=== PATIENT | female | born 1950 | race Caucasian/White ===

== ENCOUNTER 2016-12-12 13:50 | Emergency (ER) | payer MEDICARE, MEDICAID ==
[~2016-12-12] VITALS: Ht 160 cm; Wt 88.9 kg
[~2016-12-12 13:50] MED LIST: ACETAMINOPHEN &1 TA1 PO; ANTIVERT12.5 MG PO; ATENOLOL25 M1 PO; CIPRO 250MG TA250 MG PO; CIPRO 500MG TA500 MG PO; CODEINE/GUAIFE120 M1 PO; CYMBALTA30 MG PO; DANAZOL PO; DIAZEPAM5 M1 PO; DIFLUCAN150 MG PO; EPINASTINE HCL5 ML OP; ERYTHROMYCIN 2250 M3 PO; HYDROCODONE1 TABLET PO; MEDROL 4MG. DOSE4 MG PO; MORPHINE SULFAT15 M3 PO; NEURONTIN 300M300 MG PO; OMEPRAZOLE40 MG PO; PHENERGAN 25MG.25 M1 PO; PREDNISONE 20MG20 MG PO; PREMARIN0.3 MG PO; PRILOSEC20 M1 PO; PROTONIX 40MG T40 MG PO; Prilosec20 MG PO; TAMIFLU75 MG PO; TESSALON PERLE100 MG PO; TRICOR 145 MG145 MG PO; TRICOR48 MG PO; VICODIN 5/500 T1 TAB PO; VITAMIN D1000 IU PO; ZITHROMAX Z PA250 MG PO
--- NOTE | 2016-12-12 14:16 | Urgent Treatment Center Report ---
History of Present Issue Date/Time Seen by Provider 12/12/16 2545 Visit Reason Pt arrived:Walked Presenting Problem:DIARRHEA BEGAN TUESDAY, ABD CRAMPS Location if Accident: Onset of symptoms date/time:/ or onset unknown for:MEDICAL HX UNKNOWN Have you (or family members/close friends) recently traveled outside the [place]? If Yes, where/when: Have you had exposure to infectious disease within the past month? TB? Other? Specify: c/o N/V/D with cramping. Started mid day , 72 hours ago, after eating [employer]. No one else that ate ill. [place] feverish intially. Vomiting has stopped as of yesterday morning. Still intermittently nauseated. Diarrhea has slowed down to only twice today. Watery. yellow. Worse after coffee. Decreased appetite. No known sick contacts. Denies abdominal pain other than cramping associated w/ diarrhea. Promethazine has helped but doesn't have any more. No improvement typically with zofran. Drove to clinic today. Source patient Exam Limitations no limitations ALLERGIES Coded Allergies: Rho(D) immune globulin (From [employer]) (Mild, NA-NAUSEA/VOMITING 05/21/15) Sulfa (Sulfonamide Antibiotics) (Mild, NA-NAUSEA 05/21/15) maltose (From [employer]) (Mild, NA-NAUSEA/VOMITING 05/21/15) Home Medications Active Scripts CIPROFLOXACIN HCL (Cipro 250MG TAB) 250 MG PO BID #14 TAB Prov: 06/22/16 Prednisone (Prednisone 20MG) 20 MG PO BID #10 TAB Prov: 06/26/16 Azithromycin (Zithromycin (Z-DIAMOND) 250MG Tab) 250 MG PO DAILY #6 TAB Prov: 06/26/16 BENZONATATE (Benzonatate) 100 MG PO TID #15 CAP Prov: 06/26/16 Reported Medications Danazol 50 MG PO BID Gabapentin (Neurontin 300MG) 300 MG PO TID DULOXETINE HCL (Cymbalta 30MG) 30 MG PO DAILY Atenolol 25 MG PO BID EPINASTINE HCL (Epinastine HCl) 5 ML OP BID #5 CHOLECALCIFEROL (VITAMIN D3) (Vitamin D3) 2,000 IUNITS PO DAILY History Medical History General CAD? No Angina: Yes [place]: No Hypertension? Yes Hyperlipidemia? Yes CHF? No DVT? No PE? No COPD? No Asthma? No Anemia? Yes GERD? Yes Gastric ulcers? No GI Bleed? No Hernia? Yes Thyroid Problems? No Hypothyroidism? No CVA? Yes Seizures? No Diabetes? No UTI? Yes Stones? Yes GB Disease: Yes Nephritic Syndrome? No Asplenia? No Hepatitis? No Sickle Cell Disease? No Arthritis? Yes Migraines? No Cataracts? No Glaucoma? No MRSA? No HIV? No TB? No Anxiety? No Depression? No Cancer? Yes Site: SKIN -FACE More? Yes Additional hx: LOW PLATELET COUNT Immunization HX DT/Tetanus 5-10 YRS Flu REFUSES Pneumonia Received In Past Surgical Hx Previous Surgery?Y SPLEENECTOMY HYSTERECTOMY CHOLECYSTECTOMY SKIN CANCER Family History Family HX Diabetes Yes CAD Yes Hypertension Yes Hyperlipidemia Yes Cancer No TB No Social History Alcohol Alcohol: No Review of Systems All Other Systems Reviewed and Negative Constitutional see HPI, malaise (improving) Eyes denies drainage ENT denies: ear pain, nose discharge, nose congestion, throat pain. Respiratory denies orthopnea, denies shortness of breath Cardiovascular denies chest pain, denies palpitations Gastrointestinal see HPI Genitourinary denies: dysuria, frequency. Skin denies lesions, denies lumps, denies rash Psychiatric/Neurological denies headache Physical Exam Vital Signs Vital Signs Date Time Temp Pulse Resp B/P Pulse O2 O2 Flow FiO2 Ox Delivery Rate 12/12 1427 98.6 70 18 128/71 96 12/12 1356 98.6 70 18 128/71 96 General Appearance normal appearance, no apparent distress Eye Exam - bilateral eye normal exam Ear, Nose, Throat normal ENT inspection Respiratory Status No: respiratory distress, productive cough, non productive cough. Lung Sounds anterior: lungs clear. posterior: lungs clear. bilateral: lungs clear. Cardiovascular regular rate/rhythm, no peripheral edema, no murmur Gastrointestinal normal bowel sounds, non tender, soft, no organomegaly, no pulsatile mass, no guarding, no rebound Neurologic alert, oriented x 3 Mental status normal mood/affect Skin normal color, warm/dry Lymphatic no adenopathy Medical Decision Making LABS/Meds/Orders Pt receiving controlled substance in ED? No Results/Orders Current Medication Orders Sig/Kirill Start time Last Medication Dose Route Stop Time Status Admin Ondansetron HCl 4 MG ONCE ONE 12/12 1445 DC 12/12 IM 12/12 1446 1447 Ondansetron HCl 0 .STK-MED ONE 12/12 1438 DC .ROUTE Departure Departure Time of Disposition 1501 Disposition DC Home or Self Care(routine) Clinical Impression Primary Impression: Viral gastroenteritis Condition STABLE Referrals Venkat Doherty MD (Family) IMMEDIATELY for new or worsening symptoms OR no noticeable improvement over the next 24-48 hours. Patient Instructions DI for Viral Gastroenteritis -- Adult Additional Instructions * Monitor Temp. FU if fever develops * Follow up immediately for new or worsening symptoms OR no noticeable improvement over the next 24-48 hours. * Increase fluids. Water, gatorade, powerade, juice OR pedialyte with limited formula/dairy in children. * No food is ok as long as you or your child is drinking. Once ready to eat, start bland. bananas, rice, applesauce, toast. Avoid coffee and dairy. Can make symptoms worse. * Contagious until no diarrhea, vomiting, fever x 24 hours without medication * Avoid anti-diarrheals unless told otherwise. Best to let the virus run its course. it already seems to be improving. * promethazine every 8 hours as needed for nausea. Will cause drowsiness. No driving or operating machinary after taking. Discharge Counseling Counseled pt/family regarding diagnosis, medications/RX, home care, follow up needs Prescriptions Current Visit Scripts PROMETHAZINE HCL (Promethazine 25mg Tab) 25 MG PO Q8HP PRN N/V #6 TAB will cause drowsiness at 1503
--- NOTE | 2016-12-12 14:16 | Urgent Treatment Center Report ---
History of Present Issue Date/Time Seen by Provider 12/12/16 2105 Visit Reason Pt arrived:Walked Presenting Problem:DIARRHEA BEGAN TUESDAY, ABD CRAMPS Location if Accident: Onset of symptoms date/time:/ or onset unknown for:MEDICAL HX UNKNOWN Have you (or family members/close friends) recently traveled outside the [place]? If Yes, where/when: Have you had exposure to infectious disease within the past month? TB? Other? Specify: c/o N/V/D with cramping. Started mid day , 72 hours ago, after eating [employer]. No one else that ate ill. [place] feverish intially. Vomiting has stopped as of yesterday morning. Still intermittently nauseated. Diarrhea has slowed down to only twice today. Watery. yellow. Worse after coffee. Decreased appetite. No known sick contacts. Denies abdominal pain other than cramping associated w/ diarrhea. Promethazine has helped but doesn't have any more. No improvement typically with zofran. Drove to clinic today. Source patient Exam Limitations no limitations ALLERGIES Coded Allergies: Rho(D) immune globulin (From [employer]) (Mild, NA-NAUSEA/VOMITING 05/21/15) Sulfa (Sulfonamide Antibiotics) (Mild, NA-NAUSEA 05/21/15) maltose (From [employer]) (Mild, NA-NAUSEA/VOMITING 05/21/15) Home Medications Active Scripts CIPROFLOXACIN HCL (Cipro 250MG TAB) 250 MG PO BID #14 TAB Prov: 06/22/16 Prednisone (Prednisone 20MG) 20 MG PO BID #10 TAB Prov: 06/26/16 Azithromycin (Zithromycin (Z-DIAMOND) 250MG Tab) 250 MG PO DAILY #6 TAB Prov: 06/26/16 BENZONATATE (Benzonatate) 100 MG PO TID #15 CAP Prov: 06/26/16 Reported Medications Danazol 50 MG PO BID Gabapentin (Neurontin 300MG) 300 MG PO TID DULOXETINE HCL (Cymbalta 30MG) 30 MG PO DAILY Atenolol 25 MG PO BID EPINASTINE HCL (Epinastine HCl) 5 ML OP BID #5 CHOLECALCIFEROL (VITAMIN D3) (Vitamin D3) 2,000 IUNITS PO DAILY History Medical History General CAD? No Angina: Yes [place]: No Hypertension? Yes Hyperlipidemia? Yes CHF? No DVT? No PE? No COPD? No Asthma? No Anemia? Yes GERD? Yes Gastric ulcers? No GI Bleed? No Hernia? Yes Thyroid Problems? No Hypothyroidism? No CVA? Yes Seizures? No Diabetes? No UTI? Yes Stones? Yes GB Disease: Yes Nephritic Syndrome? No Asplenia? No Hepatitis? No Sickle Cell Disease? No Arthritis? Yes Migraines? No Cataracts? No Glaucoma? No MRSA? No HIV? No TB? No Anxiety? No Depression? No Cancer? Yes Site: SKIN -FACE More? Yes Additional hx: LOW PLATELET COUNT Immunization HX DT/Tetanus 5-10 YRS Flu REFUSES Pneumonia Received In Past Surgical Hx Previous Surgery?Y SPLEENECTOMY HYSTERECTOMY CHOLECYSTECTOMY SKIN CANCER Family History Family HX Diabetes Yes CAD Yes Hypertension Yes Hyperlipidemia Yes Cancer No TB No Social History Alcohol Alcohol: No Review of Systems All Other Systems Reviewed and Negative Constitutional see HPI, malaise (improving) Eyes denies drainage ENT denies: ear pain, nose discharge, nose congestion, throat pain. Respiratory denies orthopnea, denies shortness of breath Cardiovascular denies chest pain, denies palpitations Gastrointestinal see HPI Genitourinary denies: dysuria, frequency. Skin denies lesions, denies lumps, denies rash Psychiatric/Neurological denies headache Physical Exam Vital Signs Vital Signs Date Time Temp Pulse Resp B/P Pulse O2 O2 Flow FiO2 Ox Delivery Rate 12/12 1427 98.6 70 18 128/71 96 12/12 1356 98.6 70 18 128/71 96 General Appearance normal appearance, no apparent distress Eye Exam - bilateral eye normal exam Ear, Nose, Throat normal ENT inspection Respiratory Status No: respiratory distress, productive cough, non productive cough. Lung Sounds anterior: lungs clear. posterior: lungs clear. bilateral: lungs clear. Cardiovascular regular rate/rhythm, no peripheral edema, no murmur Gastrointestinal normal bowel sounds, non tender, soft, no organomegaly, no pulsatile mass, no guarding, no rebound Neurologic alert, oriented x 3 Mental status normal mood/affect Skin normal color, warm/dry Lymphatic no adenopathy Medical Decision Making LABS/Meds/Orders Pt receiving controlled substance in ED? No Results/Orders Current Medication Orders Sig/Kirill Start time Last Medication Dose Route Stop Time Status Admin Ondansetron HCl 4 MG ONCE ONE 12/12 1445 DC 12/12 IM 12/12 1446 1447 Ondansetron HCl 0 .STK-MED ONE 12/12 1438 DC .ROUTE Departure Departure Time of Disposition 1501 Disposition DC Home or Self Care(routine) Clinical Impression Primary Impression: Viral gastroenteritis Condition STABLE Referrals Venkat Doherty MD (Family) IMMEDIATELY for new or worsening symptoms OR no noticeable improvement over the next 24-48 hours. Patient Instructions DI for Viral Gastroenteritis -- Adult Additional Instructions * Monitor Temp. FU if fever develops * Follow up immediately for new or worsening symptoms OR no noticeable improvement over the next 24-48 hours. * Increase fluids. Water, gatorade, powerade, juice OR pedialyte with limited formula/dairy in children. * No food is ok as long as you or your child is drinking. Once ready to eat, start bland. bananas, rice, applesauce, toast. Avoid coffee and dairy. Can make symptoms worse. * Contagious until no diarrhea, vomiting, fever x 24 hours without medication * Avoid anti-diarrheals unless told otherwise. Best to let the virus run its course. it already seems to be improving. * promethazine every 8 hours as needed for nausea. Will cause drowsiness. No driving or operating machinary after taking. Discharge Counseling Counseled pt/family regarding diagnosis, medications/RX, home care, follow up needs Prescriptions Current Visit Scripts PROMETHAZINE HCL (Promethazine 25mg Tab) 25 MG PO Q8HP PRN N/V #6 TAB will cause drowsiness at 1505
[2016-12-12] MEDS ORDERED: PROMETHAZINE HC25 M1 PO (15:03)
[2016-12-12 15:16] VITALS: BP 128/71
== END 2016-12-12 15:16 | disposition home or self-care (01) ==
LOC: UTC 13:50 → ER 13:50 → UTC 14:11
DX: A08.4 Viral intestinal infection, unspecified (principal); Z88.2 Allergy status to sulfonamides; Z88.8 Allergy status to other drugs, medicaments and biological substances; I10 Essential (primary) hypertension; K21.9 Gastro-esophageal reflux disease without esophagitis
CPT/HCPCS: J2405

== ENCOUNTER 2017-02-24 12:46 | Emergency (ER) | payer MEDICARE, MEDICAID ==
[~2017-02-24] VITALS: Ht 160 cm; Wt 95.3 kg
[~2017-02-24 12:46] MED LIST changes: +PROMETHAZINE HC25 M1 PO
[2017-02-24 13:11] LABS: URINE BILIRUBIN - DIPSTICK NEGATIVE (NEG)
[2017-02-24 13:12] LABS: URINE BLOOD TRACE-LYSED (NEG)
--- NOTE | 2017-02-24 13:49 | Urgent Treatment Center Report ---
See Addendum History of Present Issue Date/Time Seen by Provider 02/24/17 4635 Visit Reason Pt arrived:Walked Presenting Problem:BURNING WITH URINATION, BODY ACHES, DIARRHEA Location if Accident: Onset of symptoms date/time:/ or onset unknown for:MEDICAL HX UNKNOWN Have you (or family members/close friends) recently traveled outside the [place]? N If Yes, where/when: Have you had exposure to infectious disease within the past month? TB? Other? Specify: Patient state that she has been having burning with urination on and off since she had her bladder surgery several years ago but she was worried that she may have a UTI States that she was seen yesterday by her Electro Winning Operator that told her to see her family doctor and get tested for Hpylori because she has been having eppisodes of diarrhea on and off for several months ALLERGIES Coded Allergies: Rho(D) immune globulin (From [employer]) (Mild, NA-NAUSEA/VOMITING 05/21/15) Sulfa (Sulfonamide Antibiotics) (Mild, NA-NAUSEA 05/21/15) maltose (From [employer]) (Mild, NA-NAUSEA/VOMITING 05/21/15) Home Medications Active Scripts CIPROFLOXACIN HCL (Cipro 250MG TAB) 250 MG PO BID #14 TAB Prov: 06/22/16 Prednisone (Prednisone 20MG) 20 MG PO BID #10 TAB Prov: 06/26/16 Azithromycin (Zithromycin (Z-DIAMOND) 250MG Tab) 250 MG PO DAILY #6 TAB Prov: 06/26/16 BENZONATATE (Benzonatate) 100 MG PO TID #15 CAP Prov: 06/26/16 PROMETHAZINE HCL (Promethazine 25mg Tab) 25 MG PO Q8HP PRN N/V #6 TAB Prov: 12/12/16 Reported Medications Danazol 50 MG PO BID Gabapentin (Neurontin 300MG) 300 MG PO TID DULOXETINE HCL (Cymbalta 30MG) 30 MG PO DAILY Atenolol 25 MG PO BID EPINASTINE HCL (Epinastine HCl) 5 ML OP BID #5 CHOLECALCIFEROL (VITAMIN D3) (Vitamin D3) 2,000 IUNITS PO DAILY History Medical History General CAD? No Angina: Yes [place]: No Hypertension? Yes Hyperlipidemia? Yes CHF? No DVT? No PE? No COPD? No Asthma? No Anemia? Yes GERD? Yes Gastric ulcers? No GI Bleed? No Hernia? Yes Thyroid Problems? No Hypothyroidism? No CVA? Yes Seizures? No Diabetes? No UTI? Yes Stones? Yes GB Disease: Yes Nephritic Syndrome? No Asplenia? No Hepatitis? No Sickle Cell Disease? No Arthritis? Yes Migraines? No Cataracts? No Glaucoma? No MRSA? No HIV? No TB? No Anxiety? No Depression? No Cancer? Yes Site: SKIN -FACE More? Yes Additional hx: LOW PLATELET COUNT Immunization HX DT/Tetanus 5-10 YRS Flu REFUSES Pneumonia Received In Past Surgical Hx Previous Surgery?Y SPLEENECTOMY HYSTERECTOMY CHOLECYSTECTOMY SKIN CANCER Family History Family HX Diabetes Yes CAD Yes Hypertension Yes Hyperlipidemia Yes Cancer No TB No Social History Smoking Hx Smoker: Never Smoker Tobacco: No Alcohol Alcohol: No Review of Systems All Other Systems Reviewed and Negative Gastrointestinal diarrhea Genitourinary dysuria, pain. Physical Exam Vital Signs Vital Signs Date Time Temp Pulse Resp B/P Pulse O2 O2 Flow FiO2 Ox Delivery Rate 02/24 1258 98.0 70 16 126/73 97 General Appearance normal appearance, WD/WN, no apparent distress Ear, Nose, Throat normal ENT inspection Respiratory Status Yes: trachea midline. No: respiratory distress. Lung Sounds bilateral: normal breath sounds, lungs clear. Cardiovascular normal exam, regular rate/rhythm, no peripheral edema Gastrointestinal normal bowel sounds, normal exam, non tender, no guarding, no rebound Neurologic alert, normal exam, oriented x 3 Medical Decision Making LABS/Meds/Orders Pt receiving controlled substance in ED? No Results/Orders Laboratory Tests 02/24/17 1301: Influenza Type A Ag NOT DETECTED, Influenza Type B Ag NOT DETECTED, Urine Color YELLOW, Urine Appearance CLEAR, Urine pH 7.0, Ur Specific [place] 1.010, Urine Protein NEGATIVE, Urine Ketones NEGATIVE, Urine Blood TRACE-LYSED, Urine Nitrate NEGATIVE, Urine Bilirubin NEGATIVE, Urine Urobilinogen 0.2, Ur Leukocyte Esterase NEGATIVE, Urine Glucose NEGATIVE Orders Procedure Date/time Status HELICOBACTER PYLORI AB 02/24 1349 Active UTC URINE DIPSTICK 02/24 1301 Complete UTC FLU A,B 02/24 1301 Complete Departure Departure Time of Disposition 1347 Disposition DC Home or Self Care(routine) Clinical Impression Primary Impression: Diarrhea Qualifiers: Diarrhea type: unspecified type Qualified Code: R19.7 - Diarrhea, unspecified Condition STABLE Referrals Venkat Doherty MD (Family): 3 Days-Call Office Call office for follow up appointment for results of Hpylori testing Patient Instructions Diarrhea, DIET-DIARRHEA NUTRITION [facility] Additional Instructions Follow up with family doctor to get results of Hpylori testing FOllow up with family doctor if symptoms persist Return if needed Drink plenty of fluids to flush kidneys Discharge Counseling Counseled pt/family regarding diagnosis, test results, home care, follow up needs at [phone]
--- NOTE | 2017-02-24 13:49 | Urgent Treatment Center Report ---
See Addendum History of Present Issue Date/Time Seen by Provider 02/24/17 5145 Visit Reason Pt arrived:Walked Presenting Problem:BURNING WITH URINATION, BODY ACHES, DIARRHEA Location if Accident: Onset of symptoms date/time:/ or onset unknown for:MEDICAL HX UNKNOWN Have you (or family members/close friends) recently traveled outside the [place]? N If Yes, where/when: Have you had exposure to infectious disease within the past month? TB? Other? Specify: Patient state that she has been having burning with urination on and off since she had her bladder surgery several years ago but she was worried that she may have a UTI States that she was seen yesterday by her Historic Site Administrator that told her to see her family doctor and get tested for Hpylori because she has been having eppisodes of diarrhea on and off for several months ALLERGIES Coded Allergies: Rho(D) immune globulin (From [employer]) (Mild, NA-NAUSEA/VOMITING 05/21/15) Sulfa (Sulfonamide Antibiotics) (Mild, NA-NAUSEA 05/21/15) maltose (From [employer]) (Mild, NA-NAUSEA/VOMITING 05/21/15) Home Medications Active Scripts CIPROFLOXACIN HCL (Cipro 250MG TAB) 250 MG PO BID #14 TAB Prov: 06/22/16 Prednisone (Prednisone 20MG) 20 MG PO BID #10 TAB Prov: 06/26/16 Azithromycin (Zithromycin (Z-DIAMOND) 250MG Tab) 250 MG PO DAILY #6 TAB Prov: 06/26/16 BENZONATATE (Benzonatate) 100 MG PO TID #15 CAP Prov: 06/26/16 PROMETHAZINE HCL (Promethazine 25mg Tab) 25 MG PO Q8HP PRN N/V #6 TAB Prov: 12/12/16 Reported Medications Danazol 50 MG PO BID Gabapentin (Neurontin 300MG) 300 MG PO TID DULOXETINE HCL (Cymbalta 30MG) 30 MG PO DAILY Atenolol 25 MG PO BID EPINASTINE HCL (Epinastine HCl) 5 ML OP BID #5 CHOLECALCIFEROL (VITAMIN D3) (Vitamin D3) 2,000 IUNITS PO DAILY History Medical History General CAD? No Angina: Yes [place]: No Hypertension? Yes Hyperlipidemia? Yes CHF? No DVT? No PE? No COPD? No Asthma? No Anemia? Yes GERD? Yes Gastric ulcers? No GI Bleed? No Hernia? Yes Thyroid Problems? No Hypothyroidism? No CVA? Yes Seizures? No Diabetes? No UTI? Yes Stones? Yes GB Disease: Yes Nephritic Syndrome? No Asplenia? No Hepatitis? No Sickle Cell Disease? No Arthritis? Yes Migraines? No Cataracts? No Glaucoma? No MRSA? No HIV? No TB? No Anxiety? No Depression? No Cancer? Yes Site: SKIN -FACE More? Yes Additional hx: LOW PLATELET COUNT Immunization HX DT/Tetanus 5-10 YRS Flu REFUSES Pneumonia Received In Past Surgical Hx Previous Surgery?Y SPLEENECTOMY HYSTERECTOMY CHOLECYSTECTOMY SKIN CANCER Family History Family HX Diabetes Yes CAD Yes Hypertension Yes Hyperlipidemia Yes Cancer No TB No Social History Smoking Hx Smoker: Never Smoker Tobacco: No Alcohol Alcohol: No Review of Systems All Other Systems Reviewed and Negative Gastrointestinal diarrhea Genitourinary dysuria, pain. Physical Exam Vital Signs Vital Signs Date Time Temp Pulse Resp B/P Pulse O2 O2 Flow FiO2 Ox Delivery Rate 02/24 1258 98.0 70 16 126/73 97 General Appearance normal appearance, WD/WN, no apparent distress Ear, Nose, Throat normal ENT inspection Respiratory Status Yes: trachea midline. No: respiratory distress. Lung Sounds bilateral: normal breath sounds, lungs clear. Cardiovascular normal exam, regular rate/rhythm, no peripheral edema Gastrointestinal normal bowel sounds, normal exam, non tender, no guarding, no rebound Neurologic alert, normal exam, oriented x 3 Medical Decision Making LABS/Meds/Orders Pt receiving controlled substance in ED? No Results/Orders Laboratory Tests 02/24/17 1301: Influenza Type A Ag NOT DETECTED, Influenza Type B Ag NOT DETECTED, Urine Color YELLOW, Urine Appearance CLEAR, Urine pH 7.0, Ur Specific [place] 1.010, Urine Protein NEGATIVE, Urine Ketones NEGATIVE, Urine Blood TRACE-LYSED, Urine Nitrate NEGATIVE, Urine Bilirubin NEGATIVE, Urine Urobilinogen 0.2, Ur Leukocyte Esterase NEGATIVE, Urine Glucose NEGATIVE Orders Procedure Date/time Status HELICOBACTER PYLORI AB 02/24 1349 Active UTC URINE DIPSTICK 02/24 1301 Complete UTC FLU A,B 02/24 1301 Complete Departure Departure Time of Disposition 1347 Disposition DC Home or Self Care(routine) Clinical Impression Primary Impression: Diarrhea Qualifiers: Diarrhea type: unspecified type Qualified Code: R19.7 - Diarrhea, unspecified Condition STABLE Referrals Venkat Doherty MD (Family): 3 Days-Call Office Call office for follow up appointment for results of Hpylori testing Patient Instructions Diarrhea, DIET-DIARRHEA NUTRITION [facility] Additional Instructions Follow up with family doctor to get results of Hpylori testing FOllow up with family doctor if symptoms persist Return if needed Drink plenty of fluids to flush kidneys Discharge Counseling Counseled pt/family regarding diagnosis, test results, home care, follow up needs at [phone]
[2017-02-24 13:54] VITALS: BP 126/73
--- OUTSIDE RECORDS SUMMARY | 2017-02-24 14:21 | External Medical Summary Rpt | CCD ---
Author Author , KELY Organization KELY Address Unknown Phone [email or web address] Sponsorship Care Team Providers Care Csw Name Role Phone Fifi BURRELL MD PSC, A Unavailable Unavailable Santino BRURELL MD [facility] Unavailable Unavailable [facility], [facility] MARY BURRELL, Unavailable Unavailable [facility] MARY BURRELL M.D.P.S.CPawan MOSS, Unavailable Unavailable RAFFAELE ISA [facility] Unavailable Unavailable [facility] GREGORIO BERNARDO, Unavailable Unavailable GREGORIO BERNARDO [facility], Unavailable Unavailable [facility] TANESHA HILDA, Unavailable Unavailable TANESHA HILDA SARAN ALMENDAREZ, Unavailable Unavailable TANESHACANDELARIA [facility] Unavailable Unavailable [facility], DERMATOLOGY [facility] ANJELICA GASTELUM, Unavailable Unavailable ANJELICA GASTELUM JANE E, Unavailable Unavailable HOMAR JUDD ELLEN J, Unavailable Unavailable LIYA CASTILLO GAINEY Unavailable Unavailable DAINA TRINY FREITAS, Unavailable Unavailable TRINY FREITAS [facility] Unavailable Unavailable HOSPITA, [facility] ODELL MIRIAN, ODELL Unavailable Unavailable MIRIAN [facility] Unavailable Unavailable INC, [facility] Unavailable Unavailable HOSPITAL, [facility] Unavailable Unavailable HOSPITAL P, [facility] P KEAGAN VEDA, KEAGAN VEDA Unavailable Unavailable YUN CRUZ, Unavailable Unavailable YUN CRUZ [facility] Unavailable Unavailable [facility], [facility] Unavailable Unavailable MEDICAL G, [facility] Un[facility] Un[facility], [facility] Un[facility], [facility] Unavailable Unavailable HOLDING, [facility] Unavailable Unavailable [facility] Unavailable Unavailable CENTER, [facility] Unavailable Unavailable SERVICES, [facility] VIOLET TOBIAS, Unavailable Unavailable QUE KAISER JR, JR Unavailable Unavailable F, QUE LAZO JR [facility] Unavailable Unavailable SERV DOOR TO DOOR SALESMAN R, [facility] SERV DOOR TO DOOR SALESMAN R GREGORY JUSTIN, Unavailable Unavailable GREGORY JUSTIN, JOSELITO RACHID Unavailable Unavailable VENKAT DOHERTY, Unavailable Unavailable VENKAT DOHERTY [facility] Unavailable Unavailable [facility], [facility] NWABUNOR ISA, Unavailable Unavailable NW[facility]UNOR IS[facility] Un[facility] JOSE L HAYWARD MD Unavailable Unavailable [facility], JOSE L HAYWARD MD [facility] Unavailable Unavailable LAB, [facility]Y [facility]Y LAB TRI PASTRANA, Unavailable Unavailable TRI PASTRA[facility] Unavailable Unavailable INCORPORAT, [facility] ANDERSONANDREY MENDENHALL, Unavailable Unavailable ANDERSON, ANDREY [facility] Unavailable Unavailable [facility] SCIFRES, SCIFRES Unavailable Unavailable SCIFRES ANG, SCIFRES Unavailable Unavailable [facility], Unavailable Unavailable [facility], Unavailable Unavailable [facility] Venkat Doherty MD, Unavailable Unavailable KAVYA Camejo MD Unavailable Unavailable Fifi BURRELL WRIGHT, Unavailable Unavailable A C Purpose Continuity of Care Document - 03-27-2007 through 2016 Problems Code Diagnosis DOS Provider Status D6949 OTHER 11-26-2016 [facility] THROMBOCYTO HEMATOLOGY PENIA ONCO N393 STRESS 09-28-2016 [facility] [place] [facility] MALE D46Z OTHER 08-25-2016 [facility] MYELODYSPLA [facility] STIC SYNDROMES D696 THROMBOCYTO 08-25-2016 [facility] UNSPECIFIED H94112 HEMIPLEGIA 08-25-2016 [facility] CEREBRAL INFARCT AFF LT NON-DOM N312 FLACCID 08-25-2016 [facility] NEUROPATHIC [facility] BLADDER NEC R32 UNSPECIFIED 08-25-2016 [facility] URINARY [facility] INCONTINENC E R449 UNS SX & 08-25-2016 [facility] GEN SENSATION & PERCEPTIONS D85066 PERSONAL 08-25-2016 [facility] OTHER MALIGNANT NEOPLASM SKIN Z9081 ACQUIRED 08-25-2016 [facility] SPLEEN N3946 MIXED 08-24-2016 [facility] P Z1231 ENCOUNTER 08-24-2016 [facility] P NEOPLASM BREAST D469 MYELODYSPLA 07-12-2016 [facility] SYNDROME UNSPECIFIED D693 IMMUNE 07-12-2016 [facility]IC PURPURA J439 EMPHYSEMA 07-02-2016 [facility] R05 COUGH 07-02-2016 [facility] [place] [facility] R0602 SHORTNESS 07-02-2016 [facility] N390 URINARY 06-29-2016 [facility] SITE NOT SPECIFIED R319 HEMATURIA 06-29-2016 [facility] UNSPECIFIED [facility]AGNOSTICS INCORPORAT R079 CHEST PAIN 06-26-2016 [place] [facility] E70760 PINGUECULIT 04-01-2016 [facility] IS BILATERAL H5213 MYOPIA 04-01-2016 [facility] BILATERAL R90970 REGULAR 04-01-2016 [facility] ASTIGMATISM BILATERAL J40 BRONCHITIS 02-20-2016 A Santino DAWN MD PSC SPECIFIED ACUTE OR CHRONIC R300 DYSURIA 02-20-2016 A Santino BURRELL MD PSC R6889 OTHER 02-20-2016 A Santino BURRELL GENERAL PSC SYMPTOMS AND SIGNS Z833 FAMILY 02-20-2016 A Santino BURRELL HISTORY OF PSC DIABETES MELLITUS J329 CHRONIC 02-10-2016 A Santino BURRELL SINUSITIS PSC UNSPECIFIED Z23 ENCOUNTER 02-10-2016 A Santino BURRELL FOR PSC IMMUNIZATIO N C751 MALIGNANT 12-04-2015 NEW NEOPLASM OF [facility] PSC GLAND U79618 MIGRAINE 12-04-2015 NEW UNS NOT [facility] INTRACT W/O CLINIC PSC STATUS MIGRAINOSUS R413 OTHER 12-04-2015 NEW [facility] PSC R0989 OTH SPEC SX 11-27-2015 NEW & SIGNS [facility] INVLV THE CLINIC PSC CIRC & RESP SYS D649 ANEMIA 08-29-2015 NEW UNSPECIFIED [facility] PSC I10 ESSENTIAL 07-23-[address] [facility] HYPERTENSIO MEDICAL G N I2510 ASHD BUCK[place] 07-23-[address] 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 CONNECTIVE TISSUE UNS R9439 ABNORMAL 07-22-2015 [facility] CARDIOVASCU LR FUNCTION STUDY Z8673 PERSONAL HX 07-22-2015 [facility] CEREB INFARCT NO RESID DEFICIT R0600 DYSPNEA 07-08-2015 [place] UNSPECIFIED [facility] IM[facility]ING ASS E03460 COMBINED 07-01-2015 [facility] FORMS OF ISA AGE-RELATED CATARACT LEFT EYE H269 UNSPECIFIED 05-27-2015 [facility] R110 NAUSEA 04-23-2015 Fifi BURRELL MD PSC R6883 CHILLS 04-23-2015 Fifi JOSHI MD PSC FEVER R63940 OTHER LONG 04-02-2015 [facility] CURRENT DRUG THERAPY Z9049 ACQUIRED 04-02-2015 [facility] SPEC PARTS DIGESTIVE TRACT V94854 ACQUIRED 04-02-2015 [facility] BOTH CERVIX AND UTERUS H2513 AGE-RELATED 03-27-2015 [facility] ANG NUCLEAR CATARACT BILATERAL M797 FIBROMYALGI 01-29-2015 Fifi Calix MD PSC M2010 HALLUX 12-26-2014 [place] VAL[facility]US [facility]ICAL ACQUIRED IMAGING ASS UNSPECIFIED FOOT M2011 HALLUX 12-26-2014 [facility]US [facility] ACQUIRED INC RIGHT FOOT M7731 CALCANEAL 12-26-2014 [place] SPUR RIGHT MEDICAL FOOT IMAGING ASS M7989 OTHER 12-26-2014 [place] SPECIFIED MEDICAL SOFT TISSUE IMAGING ASS DISORDERS 29686 PRIMARY 12-18-2014 [facility] HEMATOLOGY UNSPECIFIED ONCO 85156 IMMUNE 11-05-2014 [facility] THROMBOCYTO [facility] PENIC INC PURPURA 5693 HEMORRHAGE 11-05-2014 [facility] OF RECTUM [facility] AND ANUS INC 79532 OSTEOARTHRO 11-05-2014 [place] SIS UNSPEC MEDICAL WHETHER IMAGING ASS GEN/LOC LOWER LEG 75852 PAIN IN 11-05-2014 [place] JOINT, SITE [facility] HOS[facility] INC UNSPECIFIED 11802 PAIN IN 11-05-2014 [place] JOINT, MEDICAL LOWER LEG IMAGING ASS 7291 UNSPECIFIED 11-05-2014 [facility] MYALGIA [facility] AND INC MYOSITIS 06739 UNSPECIFIED 10-25-2014 [facility] ESOPHAGITIS CENTER 75698 REFLUX 10-25-2014 [facility] 41080 ESOPHAGEAL 10-25-2014 [facility] REFLUX SURGERY CENTER 5379 UNSPECIFIED 10-25-2014 [facility]ORDER [facility] OF STOMACH AND DUODENUM 5533 DIAPHRAGMAT 10-25-2014 [facility] FRANCISCO J W/O SURGERY MENTION CENTER OBSTRUCTION /GANGREN 54535 DIVERTICULO 10-25-2014 [facility] SIS OF SURGERY COLON CENTER 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 10-25-2014 [facility] CONGENITAL SURGERY ANOMALIES CENTER OF INTESTINE V571 OTHER 08-01-2014 [facility] PHYSICAL [facility] THERAPY INC 2859 UNSPECIFIED 07-05-2014 [place] ANEMIA [facility] P 4019 UNSPECIFIED 07-05-2014 [place] ESSENTIAL [facility] P N 515 POSTINFLAMM 07-05-2014 [place] ATORY MEDICAL PULMONARY IMAGING ASS FIBROSIS 7241 PAIN IN 07-05-2014 [place] THORACIC MEDICAL SPINE IMAGING ASS 8471 THORACIC 07-05-2014 [facility] P 4611 ACUTE 06-20-2014 A Santino DURAN MD PSC SINUSITIS 4779 ALLERGIC 06-20-2014 A Santino BURRELL RHINITIS PSC CAUSE UNSPECIFIED 37692 HIDRADENITI 06-20-2014 A Santino Perales MD PSC 96743 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[facility] 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 V5869 LONG-TERM 04-29-2014 [facility] (CURRENT) CENTER OF USE OF [place] OTHER MEDICATIONS 05017 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 [facility] CEREBROVASC ULAR DISEASE 25578 OTHER 01-23-2014 [facility] FATIGUE V1083 PERSONAL 01-23-2014 [facility] OTHER MALIGNANT NEOPLASM SKIN 2111 BENIGN 12-14-2013 [facility] NEOPLASM OF SURGERY STOMACH CENTER 22708 ABDOMINAL 12-14-2013 [facility] PAIN, EPIGASTRIC V1272 PERSONAL 11-09-2013 [facility] HISTORY OF COLONIC POLYPS 57009 UNSPECIFIED 10-30-2013 [place] CEREBRAL [facility] ARTERY INC OCCLUSION W/INFARCT 4359 UNSPECIFIED 08-17-2013 [place] [facility] TRANSIENT SERV CEREBRAL FOUNDATION ISCHEMIA 436 ACUTE BUT 08-17-2013 [place] MEDICAL ILL-DEFINED SERV FOUNDATIO CEREBROVASC ULAR DISEASE V1254 PERSONAL HX 08-17-2013 [place] MEDICAL TIA & CI SERV W/O FOUNDATION RESIDUAL DEFICITS 2724 OTHER AND 08-16-2013 [place] UNSPECIFIED [facility]OS[facility] INC HYPERLIPIDE YING 4371 OTH 08-16-2013 [place] GENERALIZED MEDICAL ISCHEMIC IMAGING ASS CEREBROVASC ULAR DISEASE 00154 OTHER 08-16-2013 [facility] DISEASES OF AMBULANCE LUNG NOT SERV DOOR TO DOOR SALESMAN R ELSEWHERE CLASSIFIED 21885 MUSCLE 08-16-2013 [facility] WEAKNESS AMBULANCE (GENERALIZE SERV DOOR TO DOOR SALESMAN R D) 28333 OTHER 08-16-2013 [facility] RESPIRATORY AMBULANCE SERV [place] [address] UNSPECIFIED 08-03-2013 [facility] [place] [address] CONJUNCTIVA 07-22-2013 [facility] DAINA L HEMORRHAGE 96814 CEREBRAL 05-11-2013 [place] [facility] THROMBOSIS SERV WITH [facility]AT[facility] CEREBRAL INFARCTION 81056 OTHER 05-10-2013 [place] MEDICAL CONDITIONS SERV OF BRAIN [facility] 7949 NONSPECIFIC 05-10-2013 [place] MEDICAL ABNORM SERV RESULTS OT [facility] SPEC FUNCT STUDY 2875 UNSPECIFIED 05-09-2013 [facility] THROMBOCYTO SERVICES PENIA 49503 OTHER 04-18-2013 A Santino SANTOS MD [facility] STATES 4659 ACUTE URIS 04-18-2013 A Santino CALERO [facility] UNSPECIFIED SITE 7881 DYSURIA 04-18-2013 A Santino BURRELL MD P[facility] 3480 CEREBRAL 02-07-2013 [place] CYSTS MEDICAL IMAGING ASS 67792 MEMORY LOSS 02-07-2013 [facility] INC 50995 OTHER 10-19-2012 DERMATOLOGY SPECIFIED ERYTHEMATOU CONSULTANTS S CONDITION PSC OTHER 13225 INFLAMED 10-19-2012 DERMATOLOG[facility] SEBORRHEIC KERATOSIS CONSULTANTS PSC 20543 PAIN IN 08-08-2012 [place] JOINT, MEM HOS[facility] SHOULDER INC REGION 48034 OTHER 05-08-2012 [facility] THROMBOCYTO HEMATOLOGY PENIA ONCO 4293 CARDIOMEGAL 05-05-2012 [facility] MEDICAL IMAGING ASS 4660 ACUTE 05-03-2012 [facility] 4610 ACUTE 04-12-2012 Fifi CHEN MD [facility] SINUSITIS 496 CHRONIC 04-12-[address] HILDA OBSTRUCTION NEC 7862 COUGH 04-12-2012 [facility] 67828 INFLUENZA 03-30-2012 A Santino VILLEGAS MD [facility] INFLUENZA A OTH MANIFEST 61706 WHEEZING 03-30-2012 Fifi BURRELL MD PSC 52685 SHORTNESS 03-26-2012 TANESHA OF BREATH HILDA 486 PNEUMONIA, 03-25-2012 KAVYA OWENS ORGANISM UNSPECIFIED 4871 INFLUENZA 03-25-2012 [facility] WITH OTHER MEM HOS[facility] RESPIRATORY INC MANIFESTATI ONS 65995 TACHYPNEA 03-25-2012 KAVYA OWENS 00529 SUDDEN 03-17-2012 [facility] VISUAL LOSS ISA 3698 UNQUALIFIED 03-17-2012 [facility] VISUAL [facility] LOSS, ONE INC EYE 3699 UNSPECIFIED 03-17-2012 TANESHA VISUAL HILDA LOSS 83968 NAUSEA 12-07-2011 [facility]ITY [facility]OS[facility] 41155 ABDOMINAL 12-07-2011 [place] PAIN, [facility] UNSPECIFIED HOSPITA SITE 99710 ACUTE 12-02-2011 [facility] GASTRITIS NKLIN NANCY WITHOUT MENTION OF HEMORRHAGE 62965 OTHER SPEC 12-02-2011 [place] GASTRITIS COMMUNITY WITHOUT HOSPITA MENTION HEMORRHAGE 7871 HEARTBURN 12-02-2011 [facility] NKLIN NANCY 36644 DYSPHAGIA 11-01-2011 [place] [facility] 30796 DYSPHAGIA 11-01-2011 [facility] ORAL PHASE [facility] INC V711 OBSERVATION 11-01-2011 [place] FOR [facility] SUSPECTED INC MALIGNANT NEOPLASM 5990 URINARY 07-29-2011 JOSELITO RACHID TRACT INFECTION SITE NOT SPECIFIED 7804 DIZZINESS 02-27-2011 MCANITRAMIE AND MICHELINE GIDDINESS 7840 HEADACHE 02-27-2011 [place] [facility] 7919 OTHER 02-27-2011 [facility] MARTINEZ NONSPECIFIC MICHELINE FINDING EXAMINATION OF URINE 77543 OBSTRUCTIVE 12-08-2010 JOSE L HAYWARD SLEEP APNEA CONSULTING SRV 58300 OTHER 12-08-2010 JOSE L HAYWARD SPECIFIED CARDIAC CONSULTING DYSRHYTHMIA SRV S 03426 PRECORDIAL 12-08-2010 JOSE L MAINOR PAIN CONSULTING SRV 7821 RASH AND 10-20-2010 [facility] OTHER CENTER OF NONSPECIFIC [place] SKIN ERUPTION V7612 OTHER 08-18-2010 [facility] SCREENING [facility]OS[facility] MAMMOGRAM INC 53080 UNSPECIFIED 08-16-2010 [facility] SITE OF EMERGENCY ANKLE SERVICES SPRAIN AND STRAIN 12476 SPRAIN AND 08-16-2010 [facility] STRAIN OF EMERGENCY UNSPECIFIED SERVICES SITE OF FOOT 9597 INJURY 08-16-2010 [place] OTHER&UNSPE MEDICAL CIFIED KNEE IMAGING ASS LEG ANKLE&FOOT E8889 UNSPECIFIED 08-16-2010 [facility] 41963 PAIN IN 07-30-2010 [place] JOINT MEDICAL PELVIC IMAGING ASS REGION AND THIGH 66971 OTHER 07-27-2010 YIMI ORELLANA M[facility] 2706 LUMBOSACRAL 07-27-2010 MARY BURRELL SPONDYLMARIO [facility] WITHOUT MYELOPATHY 7242 LUMBAGO 07-27-2010 MARY BURRELL M.D.P.S.C. E9479 UNSPEC 03-26-2010 [facility] RX/MEDICINA [place] [address] NUCLEAR 02-10-2010 [facility] SCLEROSIS 80694 OTHER 02-10-2010 [facility] VITREOUS OPACITIES 43688 UNSPECIFIED 01-28-2010 [facility] NANCY CONSTIPATIO N 4011 ESSENTIAL 11-01-2009 [facility] HYPERTENSIO [place] INC N, BENIGN 2720 PURE 08-26-2009 [place] [facility] 45802 ATROPHIC 08-26-2009 [place] GASTRITIS [facility] WITHOUT HOSPITAL MENTION OF HEMORRHAGE 78394 OTHER 08-26-2009 [place] SYMPTOMS [facility] INVOLVING HOSPITAL HEAD AND NECK 46646 OTH 08-22-2009 [facility] NONSPECIFIC PHYSICIANS ABNORM CV GROUP SYSTEM FUNCTION STUDY 58537 CHEST PAIN 08-11-2009 [facility] UNSPECIFIED PHYSICIANS GROUP 48683 CORONARY 08-07-2009 [facility] CORONARY ARTERY V7651 SPECIAL 07-18-2009 [facility] [facility] [facility] SCREENING ANESTHESIA FOR PSC MALIGNANT NEOPLASMS COLON 43697 SUPRAVENTRI 07-14-2009 [facility] CULAR PHYSICIANS PREMATURE GROUP BEATS 33561 OTHER CHEST 07-14-2009 [facility] PAIN PHYSICIANS GROUP V762 SCREENING 06-02-2009 PATHOLOGY & FOR CYTOLOGY MALIGNANT LAB NEOPLASM OF THE CERVIX 02823 UNSPECIFIED 05-20-2009 [place] ABNORMAL MEDICAL MAMMOGRAM IMAGING ASSOCIATES 27810 OTHER 05-20-2009 [place] ABNORMAL [facility] FINDING INC RADIOLOGICA L EXAM BREAST 50855 UNSPECIFIED 04-17-2009 A Santino BURRELL VAGINITIS [facility] AND VULVOVAGINI TIS 7906 OTHER 04-17-2009 A Santino BURRELL ABNORMAL [facility] BLOOD CHEMISTRY 7851 PALPITATION 04-14-2009 [facility] S PHYSICIANS GROUP 2871 QUALITATIVE 02-06-2009 [place] [facility] 1552 MALIGNANT 11-14-2008 [place] NEOPLASM [facility] LIVER NOT HOSPITAL SPEC PRIMARY/SEC 86641 DENTAL 11-07-2008 GREGORY JUSTIN DMD EXTENDING PSC INTO DENTINE 90445 URINARY 06-18-2008 Fifi BURRELL FREQUENCY [facility] 07157 CLOSED 06-18-2008 [place] FRACTURE OF MEDICAL IMAGING UNSPECIFIED ASSOCIATES BONE OF FOOT 52206 CLOSED 06-06-2008 [place], FRACTURE OF GREGORIO NAVICULAR BONE OF FOOT E8490 PLACE OF 06-05-2008 [place] OCCURRENCE, MEDICAL HOME IMAGING ASSOCIATES E8809 ACCIDENTAL 06-05-2008 [facility] OR MEDICAL FROM OTHER IMAGING STAIRS OR ASSOCIATES STEPS 7964 OTHER 05-29-2008 [facility] ABNORMAL [facility] FINDING V180 FAMILY 02-03-2008 [facility] HISTORY OF AMERIC DIABETES HOLDING MELLITUS 7019 UNSPECIFIED 01-30-2008 Fifi BURRELL MD PSC HYPERTROPHI C&ATROPHIC CONDITION SKIN 19937 UNSPECIFIED 01-25-2008 [place] URETHRITIS [facility] PROF SERV 7295 PAIN IN 12-05-2007 HERNANDEZ SOFT INDRA, TISSUES OF M.D.P.S.C. 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 487.1 Influenza [facility] 573.8 786.50 786.59 793.80 D69.3 IMM[facility]E THROMBOCYTO PENIC PURPURA D69.6 THROMBOCYTO PENIA, UNSPECIFIED G45.9 TRANSIENT CEREBRAL ISCHEMIC ATTACK, UNSPECIFIED J40 BRONCHITIS, NOT SPECIFIED ACUTE OR CHRONIC M79.7 FIBROMYALGI A S29.019A STRAIN OF MUSCLE AND TENDON OF UNSP WALL OF THORAX, INIT Allergies, Adverse Reactions, Alerts Type Drug Allergy Adverse Reaction to Substance Substance Reaction Severity SULFA (sulfonamide) NA-NAUSEA Unknown Rho(D) Immune NA-NAUSEA/VOMITING Unknown Globulin Medications Na ND Rx Da Fi Fi Am Da Di Ph RX Ph St me C No te ll ll ou ys ag ar # ys at s nt no ma ic us Or Da si cy ia de te s n re d MA 00 02 0 No PA 90 -1 P 41 9- Lo 32 98 20 ng 5 26 14 er MG 1 Ac TA ti BL ve ET Vital Signs 05-09-2013 17:03 Name Value Interpretat Reference Comment ion Range Body 98.6 [degF] Temperature BP 74 mm[Hg] Diastolic BP Systolic 140 mm[Hg] Heart 66 /min Rate/Pulse O2% 98 % Respiratory 18 /min Rate 05-09-2013 13:44 Name Value Interpretat Reference Comment ion Range BP 93 mm[Hg] Diastolic BP Systolic 158 mm[Hg] Heart 86 /min Rate/Pulse O2% 98 % Respiratory 20 /min Rate Results Labs Lab Lab Date Result Refere Interp Status Commen Order Detail nces retati t Range on URINALYSIS/COMPLETE (05-09-2013 14:15) URINE DK YELLOW complet COLOR 014 YELLOW ed 14:15 URINE SL CLEAR complet APPEARA 014 CLOUDY ed NCE 14:15 URINE NEGATIV NEG complet GLUCOSE 014 E ed - 14:15 DIPSTIC K URINE NEGATIV NEG complet BILIRUB 014 E ed IN - 14:15 DIPSTIC K URINE NEGATIV NEG complet KETONE 014 E mg/dL ed 14:15 URINE 1.015 1.005-1 complet SPECIFI 014 UNK .030 ed C 14:15 GRAVITY URINE TRACE-I NEG complet BLOOD 014 NTACT ed 14:15 URINE 7.5 UNK 5.0-8.5 complet PH 014 ed 14:15 URINE TRACE NEG complet PROTEIN 014 mg/dL ed - 14:15 DIPSTIC K URINE 1.0 NEG complet UROBILI 014 E.U./dL ed NOGEN - 14:15 DIPSTIC K URINE NEGATIV NEG complet NITRATE 014 E ed - 14:15 DIPSTIC K URINE NEGATIV NEG complet LEUK 014 E ed ESTERAS 14:15 E URINE 5-10 0 complet RBC 014 rbc/hpf ed 14:15 URINE 3-5 O complet WBC 014 wbc/hpf ed 14:15 URINE 10-20 0-5 complet SQUAMOU 014 #/hpf ed S CELLS 14:15 URINE 2+ O complet BACTERI 014 ed A 14:15 URINE OCC NONE complet HYALINE 014 #/lpf ed CAST 14:15 COMPREHENSIVE METABOLIC PANEL (05-09-2013 13:30) Glucose 165 74-106 complet 014 mg/dL ed Bld-mCn 13:30 c BUN 13 7-18 complet Bld-mCn 014 mg/dL ed c 13:30 Creat 02-19-2 1.0 0.6-1.0 complet SerPl-m 014 mg/dL ed Cnc 13:30 Creat 82 50-200 complet Cl 014 ML/MIN ed predict 13:30 ed SerPl C-G-vRa te GFR/BSA 56 59- complet .pred 014 ML/MIN ed SerPl 13:30 Schwart z-vRate Sodium 140 136-145 complet SerPl-s 014 mmoL/L ed Cnc 13:30 Potassi 4.1 3.5-5.1 complet um 014 mmoL/L ed SerPl-s 13:30 Cnc Chlorid 105 98-107 complet e 014 mmoL/L ed SerPl-s 13:30 Cnc CO2 26 21.0-32 complet SerPl-s 014 mmoL/L .0 ed Cnc 13:30 Calcium 8.8 8.5-10. complet 014 mg/dL 1 ed SerPl-m 13:30 Cnc Prot 6.7 6.4-8.2 complet SerPl-m 014 gm/dL ed Cnc 13:30 Albumin 3.5 3.4-5.0 complet 014 gm/dL ed SerPl-m 13:30 Cnc Globuli 05-09- 3.2 1.3-3.2 complet n 014 gm/dL ed Ser-mCn 13:30 c Albumin 1.1 UNK 1.1-1.8 complet /Glob 014 ed SerPl-m 13:30 Rto Bilirub 0.9 0.2-1.0 complet 014 mg/dL ed SerPl-m 13:30 Cnc AST 05-09- 26 U/L 15-37 complet SerPl-c 014 ed Cnc 13:30 ALT 05-09- 30 U/L 12-78 complet SerPl-c 014 ed Cnc 13:30 ALP 05-09-2 68 U/L 50-136 complet SerPl-c 014 ed Cnc 13:30 CBC with AUTO DIFF (05-09-2013 13:30) WBC # -19-2 5.9 4.8-10. complet Bld 014 K/MM3 8 ed Auto 13:30 RBC # 02-19-2 4.74 4.2-5.4 complet Bld 014 M/mm3 ed Auto 13:30 Hgb -19-2 14.6 12.2-16 complet Bld-mCn 014 g/dL .2 ed c 13:30 Hct Fr 05-09-2 45.9 % 37.0-47 complet Bld 014 .0 ed 13:30 MCV RBC 05-09-2 96.9 fl 82.2-97 complet 014 .8 ed 13:30 MCH RBC 05-09-2 30.9 pg 27-31.2 complet Qn 014 ed Auto 13:30 MEAN 2 31.9 31.8-35 complet CORPUSC 014 g/dl .4 ed ULAR 13:30 HGB CONC RDW RBC 05-09-2 16.4 % 11.5-17 complet Auto 014 .5 ed 13:30 Platele -19-2 31 142-424 Low complet t Bld 014 K/mm3 alert ed Ql 13:30 Manual MEAN 2 14.7 fl 7.4-10. complet PLATELE 014 4 ed T 13:30 VOLUME Granulo -19-2 61.8 % 37.0-80 complet cytes 014 .0 ed Fr Bld 13:30 Auto LYMPH % 02-19-2 10.8 % 10-50.0 complet 014 ed 13:30 Monocyt -19-2 26.2 % 1.7-9.3 complet es Fr 014 ed Bld 13:30 Auto Eosinop 02-19-2 1.1 % 0.1-12. complet hil Fr 014 0 ed Bld 13:30 Auto Basophi 02-19-2 0.2 % 0.1-2.0 complet ls Fr 014 ed Bld 13:30 Auto Granulo 02-19-2 3.6 1.8-7.8 complet cytes # 014 K/mm3 ed Bld 13:30 Auto Lymphoc 02-19-2 0.6 0.7-4.5 complet ytes Fr 014 K/mm3 ed Bld 13:30 Auto Monocyt 02-19-2 1.5 0.1-1.0 complet es # 014 K/mm3 ed Bld 13:30 Auto Eosinop 02-19-2 0.1 0.0-0.4 complet hil # 014 K/mm3 ed Bld 13:30 Auto Basophi 05-09- 0.0 0-0.2 complet ls # 014 K/MM3 ed Bld 13:30 Auto Procedures Procedure DOS Code Location Performer Comment URINLS 73723 Fifi DOHERTY, DIP 9 INDRA [employer] STICK/TAB PSC LET REAGNT NON-AUTO MICRSCPY COLLECTIO 59087 Fifi DOHERTY N VENOUS 9 INDRA DAMON A BLOOD PSC VENIPUNCT URE TRANSFERA 66366 [facility] SE 9 [employer] AMINO AST SGOT LIPID 35107 [facility] PANEL 9 [employer] RADIOLOGI 91459 Santino RUSSO 9 MEDICAL SARAN EXAMINATI IMAGING ON FOOT 2 ASSOCIATE VIEWS S BLOOD 48045 [facility] COUNT 9 [facility] AUTOMATED BLOOD 69140 [facility] [address] [place] [address] W/MNL DIFRNTL WBC COUNT RADEX 53527 TALIA SCHUSTEREY, ANKLE 9 EMERGENCY TRINY S COMPLETE SERVICES MINIMUM 3 VIEWS ASSOCIATE S BLOOD 71354 [facility] [address] [place] [address] AUTO&AUTO DIFRNTL WBC 25 [id number] [facility] HYDROXY 9 [employer] AMERIC INCLUDES HOLDING HOLDING FRACTIONS IF PERFORMED COLLECTIO 23484 [place] N VENOUS 9 [facility] VENIPUNCT URE COLLECTIO 93995 [place] N VENOUS 9 [facility] VENIPUNCT URE BLOOD 74303 [place] COUNT 9 [facility] W/MNL DIFRNTL WBC COUNT BLOOD 68098 [place] COUNT 9 [facility] AUTOMATED TRANSFERA [id number] [facility] SE 9 [employer] ALANINE [place] [address] [facility] PHOSPHATA 9 AMERIC AMERIC SE HOLDING HOLDING ALKALINE COLLECTIO 01898 [facility] N VENOUS 9 [facility] BLOOD [place] [address] [facility] GLUTAMYLT 9 AMERIC AMERIC RASE HOLDING HOLDING GAMMA TRANSFERA 06999 [facility] SE 9 [facility] ASPARTATE HOLDING HOLDING AMINO AST SGOT BASIC 68304 [facility] METABOLIC 9 [facility] PANEL HOLDING HOLDING CALCIUM TOTAL BLOOD 82058 [place] COUNT 9 [facility] W/MNL DIFRNTL WBC COUNT COLLECTIO 83563 [place] N VENOUS 9 [facility] VENIPUNCT URE BLOOD 37224 [place] COUNT 9 [facility] AUTOMATED BLOOD 99438 [place] COUNT 9 [facility] AUTO&AUTO DIFRNTL WBC COLLECTIO 90487 [place] VENOUS 9 [facility] VENIPUNCT URE BLOOD 17526 [place] COUNT 9 [facility] W/MNL DIFRNTL WBC COUNT COLLECTIO 85499 [place] N VENOUS 9 [facility] VENIPUNCT URE BLOOD 88600 [place] COUNT 9 [facility] AUTOMATED BLOOD 59313 [place] COUNT 9 [facility] AUTO&AUTO DIFRNTL WBC COLLECTIO 30221 [place] N VENOUS 9 [facility] VENIPUNCT URE Encounters Encounter Start End Date Code Location Performer Type Date HOSPITAL [address] [facility] - 6 6 [facility] 6 6 [facility] 6 6 [facility] - 6 6 [facility] [place] - 5 5 [facility] - 5 5 [facility] [place] - 5 5 [facility] [place] [address] 4 [facility] [place] [address] 4 [facility] [place] - 4 4 [facility] [place] - 4 4 [facility] Emergency MEL Tabares (ER[facility] 4 13:06 4 17:07 [facility] [place] - 4 4 [facility] [place] [address] 3 [facility] [place] - 3 3 [facility] [place] [address] 3 [facility] [place] [facility] 3 3 [facility] [place] - 3 3 [facility] [place] - 3 3 [facility] [place] - 2 2 [facility] - 2 2 [facility] [place] - 2 2 [facility] 2 [facility] 1 [facility] [place] - 1 1 [facility] [place] [facility] 1 1 [facility] [place] - 1 1 [facility] [place] - 1 1 [facility] [place] - 1 1 [facility] - 1 1 [facility] [place] - 1 1 [facility] [place] - 1 1 [facility] [place] - 1 1 [facility] [place] - 1 1 [facility] [place] - 0 0 [facility] [place] - 0 0 [facility] [place] - 0 0 [facility] [place] - 0 0 [facility] [place] - 0 0 [facility] [place] - 0 0 [facility] [place] - 0 0 [facility] [place] - 0 0 [facility] [place] - 0 0 [facility] [place] - 0 0 [facility] [place] - 0 0 [facility] [place] - 0 0 [facility] [place] [facility] 0 0 [facility] [place] [facility] 0 0 [facility] [place] [facility] 0 0 [facility] [place] [facility] 0 0 [facility] [place] [facility] 0 0 [facility] [place] - 0 0 [facility] [place] - 0 0 [facility] [place] [facility] 0 0 [facility] [place] [facility] 0 0 [facility] [place] [facility] 0 0 [facility] [place] - 0 0 [facility] [place] - 0 0 [facility] [place] [facility] 0 0 [facility] [place] [facility] 0 0 [facility] [place] [facility] 0 0 [facility] [place] [facility] 0 0 [facility] 0 0 [facility] [place] - 0 0 [facility] [place] [facility] 0 [facility] [place] [facility] 0 0 [facility] [place] [facility] 0 0 [facility] [place] - 0 0 [facility] 0 [facility] [place] - 9 9 [facility] [place] - 9 9 [facility] [place] - 9 9 [facility] [place] [facility] 9 9 [facility] [place] [facility] 9 9 [facility] [place] [facility] 9 9 [facility] [place] - 9 9 [facility] [place] - 9 9 [facility] [place] - 9 9 [facility] [place] - 9 9 [facility] [place] - 9 9 [facility] [place] - 9 9 [facility] [place] [facility] 9 9 [facility] T [facility] [place] [facility] 9 9 [facility] [place] - 9 9 [facility] [place] - 9 9 [facility] T [facility] [place] [facility] 9 9 [facility] T [facility] [place] - 9 9 [facility] [place] - 9 9 [facility] 9 [facility] [place] - 9 9 [facility] [place] - 9 9 [facility] 9 9 [facility] [place] - 9 9 [facility] [place] [facility] 9 9 [facility] T OFFICE [id number] Fifi DOHERTY [facility] 9 9 INDRA Iglesias VISIT [facility] 25 MINUTES HOSPITAL [place] - 9 9 [facility] [place] [facility] 9 9 [facility] T OFFICE [address]4846 [place] [facility] 9 9 GREGORIO GREGORIO [facility] SPAL[facility] 45 MINUTES EMERGENCY [id number] TALIA FREITAS, 9 9 EMERGENCY [facility] SERVICES T VISIT HIGH/URGE ASSOCIATE NT S SEVERITY EMERGENCY [id number] [place] 9 9 [facility]OW/MODER SEVERITY [facility]PITAL [place] - 9 9 [facility] [place] [facility] 9 9 [facility] [place] [facility] 9 9 [facility] T OFFICE [id number] MARY CASTILLO [facility] 9 9 LIYA BURRELL T VISIT [facility] 15 . MINUTES HOSPITAL [place] [facility] 9 9 [facility] [address] [facility] 9 9 [facility] HEMATOLOG 25 Y ONCO [facility] [place] - 9 9 [facility] [place] - 9 9 [facility] [place] - 9 9 [facility] [place] - 8 8 [facility] [place] - 8 8 [facility] [place] - 8 8 [facility] [place] - 8 8 [facility] - 8 8 [facility] [place] - 8 8 [facility] - 8 8 [facility] - 8 8 [facility] [place] - 8 8 [facility] [place] - 8 8 [facility] [place] - 8 8 [facility] [place] [facility] 8 8 [facility] [place] - 8 8 [facility] [place] - 8 8 [facility] [place] - 8 8 [facility]
--- OUTSIDE RECORDS SUMMARY | 2017-02-24 14:21 | External Medical Summary Rpt | CCD ---
Author Author , KELY Organization KELY Address Unknown Phone [email or web address] Care Team Providers Care Collar Feller Name Role Phone Fifi BURRELL MD PSC, A Unavailable Unavailable Santino BURRELL MD [facility] Unavailable Unavailable [facility], [facility] MARY BURRELL, Unavailable Unavailable M.[facility]., MARY BURRELL M.D.P.S.CPawan MOSS, Unavailable Unavailable [facility] Unavailable Unavailable [facility] GREGORIO BERNARDO, Unavailable Unavailable GREGORIO BERNARDO [facility], Unavailable [facility]available [facility] TANESHA HILDA, Unavailable Unavailable TANESHA HILDA SARAN ALMENDAREZ, Unavailable Unavailable TANESHACANDELARIA [facility] Unavailable Unavailable [facility], DERMATOLOGY [facility] ANJELICA GASTELUM, Unavailable Unavailable ANJELICA GASTELUM JANE E, Unavailable Unavailable HOMAR JUDD ELLEN J, Unavailable Unavailable LIYA CASTILLO GAINEY Unavailable Unavailable DAINA TRINY FREITAS, Unavailable Unavailable TRINY FREITAS [facility] Unavailable Unavailable HOSPITA, [facility] ODELL IMRIAN, ODELL Unavailable Unavailable MIRIAN [facility] Unavailable Unavailable INC, [facility] Unavailable Unavailable HOSPITAL, [facility] Unavailable Unavailable HOSPITAL P, [facility] P KEAGAN VEDA, [facility] Unavailable Unavailable YUN CRUZ, Unavailable Unavailable YUN CRUZ [facility] Unavailable Unavailable IM[facility], [facility] Unavailable Unavailable MEDICAL G, [facility] Un[facility], [facility] Un[facility], [facility] Unavailable Unavailable HOLDING, [facility], Unavailable Unavailable [facility] Unavailable Unavailable CENTER, [facility] Unavailable Unavailable SERVICES, [facility] VIOLET TOBIAS, Unavailable Unavailable QUE KAISER JR, JR Unavailable Unavailable F, QUE LAZO JR [facility] Unavailable Unavailable SERV DIE CLEANER R, [facility] GREGORY JUSTIN, Unavailable Unavailable GREGORY JUSTIN, JOSELITO RACHID Unavailable Unavailable VENKAT DOHERTY, Unavailable Unavailable VENKAT DOHERTY [facility] Unavailable Unavailable [facility], [facility] NWABUNOR ISA, Unavailable Unavailable NWABUNOR ISA [facility] Unavailable [facility]available [facility] JOSE L HAYWARD MD Unavailable Unavailable CONSULTING SR[facility], JOSE L HAYWARD MD [facility] Unavailable Unavailable LAB, [facility]Y [facility] LAB TRI PASTRANA, Unavailable Unavailable TRI PASTRANA [facility] Unavailable Unavailable INCORPORAT, [facility] ANDERSONANDREY MENDENHALL, Unavailable Unavailable ANDERSON, ANDREY [place] Unavailable Unavailable HEMATOLOGY [facility], [facility] SCIFRES, SCIFRES Unavailable Unavailable SCIFRES ANG, SCIFRES Unavailable Unavailable [facility], Unavailable Unavailable [facility], Unavailable Unavailable [facility] Venkat Doherty MD, Unavailable Unavailable KAVYA Camejo MD Unavailable Unavailable Fifi BURRELL WRIGHT, Unavailable Unavailable A C Purpose Continuity of Care Document - 03-27-2007 through 2016 Problems Code Diagnosis DOS Provider Status D6949 OTHER 11-26-2016 [facility] THROMBOCYTO HEMATOLOGY PENIA ONCO N393 STRESS 09-28-2016 [facility] MALE D46Z OTHER 08-25-2016 [facility] MYELODYSPLA [facility] STIC SYNDROMES D696 THROMBOCYTO 08-25-2016 [facility] UNSPECIFIED [id number] HEMIPLEGIA 08-25-2016 [facility] CEREBRAL INFARCT AFF LT NON-DOM N312 FLACCID 08-25-2016 [facility] NEUROPATHIC [facility] BLADDER NEC R32 UNSPECIFIED 08-25-2016 [facility] URINARY [facility] INCONTINENC E R449 UNS SX & 08-25-2016 [facility] GEN SENSATION & PERCEPTIONS E08786 PERSONAL 08-25-2016 [facility] OTHER MALIGNANT NEOPLASM SKIN Z9081 ACQUIRED 08-25-2016 [facility] SPLEEN N3946 MIXED 08-24-2016 [facility] P Z1231 ENCOUNTER 08-24-2016 [facility] P NEOPLASM BREAST D469 MYELODYSPLA 07-12-2016 [facility] SYNDROME UNSPECIFIED D693 IMMUNE 07-12-2016 [facility] P[facility]IC PURPURA J439 EMPHYSEMA 07-02-2016 [facility] R05 COUGH 07-02-2016 [facility] [place] [facility] R0602 SHORTNESS 07-02-2016 [facility] N390 URINARY 06-29-2016 [facility] INFECTION [facility]PORAT SITE NOT SPECIFIED R319 HEMATURIA 06-29-2016 [facility] INC[facility]PORAT R079 CHEST PAIN 06-26-2016 [place] [facility] [id number] PINGUECULIT 04-01-2016 [facility] IS BILATERAL H5213 MYOPIA 04-01-2016 [facility] BILATERAL U94131 REGULAR 04-01-2016 [facility] ASTIGMATISM BILATERAL J40 BRONCHITIS [...] N C751 MALIGNANT 12-04-2015 NEW NEOPLASM [facility] PSC GLAND X76558 MIGRAINE 12-04-2015 NEW UNS NOT [facility] INTRACT W/O CLINIC PSC STATUS MIGRAINOSUS R413 OTHER 12-04-2015 NEW AMNESIA [facility] PSC R0989 OTH SPEC SX 11-27-2015 NEW & SIGNS [facility] INV[facility] THE [facility]INIC PSC CIRC & RESP SYS D649 ANEMIA 08-29-2015 NEW UNSPECIFIED [facility] PSC I10 ESSENTIAL 07-23-2015 [facility] PRIMARY HEALTH HYPERTENSIO MEDICAL G N I2510 [facility] [place] 07-23-2015 [facility] 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 E785 HYPERLIPIDE 07-22-2015 [facility] UNSPECIFIED I208 OTHER FORMS 07-22-2015 [facility] G K210 GASTRO-ESOP 07-22-2015 [facility] REFLUX DISEASE W/ ESOPHAGITIS M359 SYSTEMIC 07-22-2015 [facility] CONNECTIVE TISSUE UNS R9439 ABNORMAL 07-22-2015 [facility] CARDIOVASCU LR FUNCTION STUDY Z8673 PERSONAL HX 07-22-2015 [facility] TIA & HOSPITAL CEREB INFARCT NO RESID DEFICIT R0600 DYSPNEA 07-08-2015 [place] [facility]PECIFIED [facility] IM[facility] ASS M95734 COMBINED 07-01-2015 [facility] FORMS OF ISA AGE-RELATED CATARACT LEFT EYE H269 UNSPECIFIED 05-27-2015 [facility] CAT[facility]ACT [facility] R110 NAUSEA 04-23-2015 Fifi BURRELL MD PSC R6883 CHILLS 04-23-2015 Fifi JOSHI MD PSC FEVER D10055 OTHER LONG 04-02-2015 [facility] CURRENT DRUG THERAPY Z9049 ACQUIRED 04-02-2015 [facility] SPEC PARTS DIGESTIVE TRACT B37055 ACQUIRED 04-02-2015 [facility] BOTH CERVIX AND UTERUS H2513 AGE-RELATED 03-27-2015 SC[facility] ANG NUCLEAR CATARACT BILATERAL M797 FIBROMYALGI 01-29-2015 Fifi Calix MD PSC M2010 HALLUX 12-26-2014 [place] [facility] ACQUIRED IMAGING ASS UNSPECIFIED FOOT M2011 HALLUX 12-26-2014 [facility]US [facility] ACQUIRED INC RIGHT FOOT M7731 CALCANEAL 12-26-2014 [place] SPUR RIGHT MEDICAL FOOT IMAGING ASS M7989 OTHER 12-26-2014 [place] SPECIFIED MEDICAL SOFT TISSUE IMAGING ASS DISORDERS 91638 PRIMARY 12-18-2014 [facility] HEMATOLOGY UNSPECIFIED ONCO 67833 IMMUNE 11-05-2014 [facility] THROMBOCYTO [facility] PENIC INC PURPURA 5693 HEMORRHAGE 11-05-2014 [facility] OF RECTUM [facility] AND ANUS INC 05192 OSTEOARTHRO 11-05-2014 [place] SIS UNSPEC MEDICAL WHETHER IMAGING ASS GEN/LOC LOWER LEG 34336 PAIN IN 11-05-2014 [facility] JOINT, SITE MEM HOS[facility] INC UNSPECIFIED 34440 PAIN IN 11-05-2014 [place] JOINT, MEDICAL LOWER LEG IMAGING ASS 7291 UNSPECIFIED 11-05-2014 [facility] MYALGIA [facility] AND INC MYOSITIS 79726 UNSPECIFIED 10-25-2014 [facility] 35630 REFLUX 10-25-2014 [facility] 69325 ESOPHAGEAL 10-25-2014 [facility] REFLUX [facility]ERY CENTER 5379 UNSPECIFIED 10-25-2014 [facility] DISORDER [facility] OF STOMACH AND DUODENUM 5533 DIAPHRAGMAT 10-25-2014 [facility] FRANCISCO J W/O SURGERY MENTION CENTER OBSTRUCTION /GANGREN 89927 DIVERTICULO 10-25-2014 [facility] SIS OF SURGERY COLON CENTER 7515 OTHER 10-25-2014 [facility] CONGENITAL [facility] ANOMALIES CENTER OF INTESTINE V571 OTHER 08-01-2014 [facility] PHYSICAL [facility] THERAPY INC 2859 UNSPECIFIED 07-05-2014 [facility] ANEMIA [facility] P 4019 UNSPECIFIED 07-05-2014 [facility] ESSENTIAL [facility] P N 515 POSTINFLAMM 07-05-2014 [place] ATORY MEDICAL PULMONARY IMAGING ASS FIBROSIS 7241 PAIN IN 07-05-2014 [place] THORACIC MEDICAL SPINE IMAGING ASS 8471 THORACIC 07-05-2014 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 V5869 LONG-TERM 04-29-2014 [facility] (CURRENT) CENTER OF USE OF [place] OTHER MEDICATIONS 26733 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 [facility] CEREBROVASC ULAR DISEASE 38258 OTHER 01-23-2014 [facility] FATIGUE V1083 PERSONAL 01-23-2014 [facility] OTHER MALIGNANT NEOPLASM SKIN 2111 BENIGN 12-14-2013 [facility] NEOPLASM OF SURGERY STOMACH CENTER 35219 ABDOMINAL 12-14-2013 [facility] PAIN, EPIGASTRIC V1272 PERSONAL 11-09-2013 [facility] HISTORY OF COLONIC POLYPS 88416 UNSPECIFIED 10-30-2013 [facility] CEREBRAL [facility] ARTERY INC OCCLUSION W/INFARCT 4359 UNSPECIFIED 08-17-2013 IN MEDICAL TRANSIENT SERV CEREBRAL FOUNDATION ISCHEMIA 436 ACUTE BUT 08-17-2013 IN MEDICAL ILL-DEFINED SERV FOUNDATIO CEREBROVASC ULAR DISEASE V1254 PERSONAL HX 08-17-2013 IN MEDICAL TIA & CI SERV W/O FOUNDATION RESIDUAL DEFICITS 2724 OTHER AND 08-16-2013 [facility] UNSPECIFIED [facility] HOS[facility] INC HYPERLIPIDE YING 4371 OTH 08-16-2013 [place] GENERALIZED MEDICAL ISCHEMIC IMAGING ASS CEREBROVASC ULAR DISEASE 08001 OTHER 08-16-2013 [facility] DISEASES OF AMBULANCE LUNG NOT SERV DIE CLEANER R ELSEWHERE CLASSIFIED 91026 MUSCLE 08-16-2013 [facility] WEAKNESS AMBULANCE (GENERALIZE SERV DIE CLEANER R D) 41451 OTHER 08-16-2013 [facility] RESPIRATORY AMBULANCE [place] [address] UNSPECIFIED 08-03-2013 [place] [address] CONJUNCTIVA 07-22-2013 FORTINO DAINA L HEMORRHAGE 13850 CEREBRAL 05-11-2013 IN MEDICAL THROMBOSIS SERV WITH FOUNDATIO CEREBRAL INFARCTION 56974 OTHER 05-10-2013 IN MEDICAL CONDITIONS SERV OF BRAIN FOUNDATIO 7949 NONSPECIFIC 05-10-2013 IN MEDICAL ABNORM SERV RESULTS OT FOUNDATIO SPEC FUNCT STUDY 2875 UNSPECIFIED 05-09-2013 [facility] THROMBOCYTO SERVICES PENIA 32210 OTHER 04-18-2013 A Santino SANTOS MD [facility] STATES 4659 ACUTE URIS 04-18-2013 A Santino CALERO [facility] UNSPECIFIED SITE 7881 DYSURIA 04-18-2013 A Santino BURRELL MD PSC 3480 CEREBRAL 02-07-2013 [place] CYSTS MEDICAL IMAGING ASS 95318 MEMORY LOSS 02-07-2013 [facility] 52923 OTHER 10-19-2012 DERMATOLOGY SPECIFIED ERYTHEMATOU CONSULTANTS S CONDITION PSC OTHER 43267 INFLAMED 10-19-2012 DERMATOLOGY SEBORRHEIC KERATOSIS CONSULTANTS PSC 80701 PAIN IN 08-08-2012 [facility] JOINT, MEM HOSP SHOULDER INC REGION 11529 OTHER 05-08-2012 [facility] THROMBOCYTO HEMATOLOGY PENIA ONCO 4293 CARDIOMEGAL 05-05-2012 [facility] MEDICAL IMAGING ASS 4660 ACUTE 05-03-2012 [facility] 4610 ACUTE 04-12-2012 Fifi CHEN MD [facility] SINUSITIS 496 CHRONIC 04-12-[address] TAN[address] HILDA OBSTRUCTION NEC 7862 COUGH 04-12-2012 [facility] 35907 INFLUENZA 03-30-2012 A Santino VILLEGAS MD [facility] INFLUENZA A OTH MANIFEST 13226 WHEEZING 03-30-2012 Fifi BURRELL MD PSC 49104 SHORTNESS 03-26-2012 TANESHA OF BREATH HILDA 486 PNEUMONIA, 03-25-2012 KAVYA OWENS ORGANISM UNSPECIFIED 4871 INFLUENZA 03-25-2012 [facility] WITH OTHER MEM HOSP RESPIRATORY INC MANIFESTATI ONS 25701 TACHYPNEA 03-25-2012 KAVYA OWENS 35519 SUDDEN 03-17-2012 [facility] VISUAL LOSS ISA 3698 UNQUALIFIED 03-17-2012 [facility] VISUAL [facility] LOSS, ONE INC EYE 3699 UNSPECIFIED 03-17-2012 TANESHA VISUAL HILDA LOSS 93101 NAUSEA 12-07-[address] [facility] 94293 ABDOMINAL 12-07-2011 [facility] PAIN, [facility] UNSPECIFIED HOSPITA SITE 37070 ACUTE 12-02-2011 [facility] GASTRITIS NKLIN NANCY WITHOUT MENTION OF HEMORRHAGE 40648 OTHER SPEC 12-02-2011 [facility] GASTRITIS COMMUNITY WITHOUT HOSPITA MENTION HEMORRHAGE 7871 HEARTBURN 12-02-2011 [facility] NKLIN NANCY 96909 DYSPHAGIA 11-01-[address] [facility] [address] [facility] 22385 DYSPHAGIA 11-01-2011 [facility] ORAL PHASE [facility] INC V711 OBSERVATION 11-01-2011 [facility] FOR [facility] SUSPECTED INC MALIGNANT NEOPLASM 5990 URINARY 07-29-2011 JOSELITO RACHID TRACT INFECTION SITE NOT SPECIFIED 7804 DIZZINESS 02-27-2011 MCANITRAMIE AND MICHELINE GIDDINESS 7840 HEADACHE 02-27-2011 [facility] 7919 OTHER 02-27-2011 [facility] MARTINEZ NONSPECIFIC MICHELINE FINDING EXAMINATION OF URINE 13314 OBSTRUCTIVE 12-08-2010 JOSE L HAYWARD SLEEP APNEA CONSULTING SRV 37871 OTHER 12-08-2010 JOSE L HAYWARD SPECIFIED CARDIAC CONSULTING DYSRHYTHMIA SRV S 92433 PRECORDIAL 12-08-2010 JOSE L MAINOR PAIN CONSULTING SRV 7821 RASH AND 10-20-2010 [facility] OTHER CENTER OF NONSPECIFIC [place] SKIN ERUPTION V7612 OTHER 08-18-2010 [facility] SCREENING [facility]OS[facility] MAMMOGRAM INC 62708 UNSPECIFIED 08-16-2010 [facility] SITE OF EMERGENCY ANKLE SERVICES SPRAIN AND STRAIN 48899 SPRAIN AND 08-16-2010 [facility] STRAIN OF EMERGENCY UNSPECIFIED SERVICES SITE OF FOOT 9597 INJURY 08-16-2010 [place] OTHER&UNSPE MEDICAL CIFIED KNEE IMAGING ASS LEG ANKLE&FOOT E8889 UNSPECIFIED 08-16-2010 [facility] 43895 PAIN IN 07-30-2010 [place] JOINT MEDICAL PELVIC IMAGING ASS REGION AND THIGH 53612 OTHER 07-27-2010 [facility]I ORELLANA M[facility].P[facility]. 8658 LUMBOSACRAL 07-27-2010 MARY BURRELL SPONDYLMARIO [facility] WITHOUT MYELOPATHY 7242 LUMBAGO 07-27-2010 MARY BURRELL M.D.P.S.C. E9479 UNSPEC 03-26-2010 [facility] RX/MEDICINA [place] [address] NUCLEAR 02-10-2010 [facility] SCLEROSIS 09831 OTHER 02-10-2010 [facility] VITREOUS OPACITIES 55388 UNSPECIFIED 01-28-2010 [facility] NANCY CONSTIPATIO N 4011 ESSENTIAL 11-01-2009 [facility] HYPERTENSIO [place] INC N, BENIGN 2720 PURE 08-26-2009 [facility] 21197 ATROPHIC 08-26-2009 [facility] GASTRITIS [facility] WITHOUT HOSPITAL MENTION OF HEMORRHAGE 41059 OTHER 08-26-2009 [facility] SYMPTOMS [facility] INVOLVING HOSPITAL HEAD AND NECK 31309 OTH 08-22-2009 [facility] NONSPECIFIC PHYSICIANS ABNORM CV GROUP SYSTEM FUNCTION STUDY 50832 CHEST PAIN 08-11-2009 [facility] UNSPECIFIED PHYSICIANS GROUP 27049 CORONARY 08-07-2009 [facility] CORONARY ARTERY V7651 SPECIAL 07-18-2009 [facility] SCREENING ANESTHESIA FOR PSC MALIGNANT NEOPLASMS COLON 71314 SUPRAVENTRI 07-14-2009 [facility] CULAR PHYSICIANS PREMATURE GROUP BEATS 80760 OTHER CHEST 07-14-2009 [facility] PAIN PHYSICIANS GROUP V762 SCREENING 06-02-2009 PATHOLOGY & FOR CYTOLOGY MALIGNANT LAB NEOPLASM OF THE CERVIX 44005 UNSPECIFIED 05-20-2009 [place] ABNORMAL MEDICAL MAMMOGRAM IMAGING ASSOCIATES 00761 OTHER 05-20-2009 [facility] ABNORMAL [facility] FINDING INC RADIOLOGICA L EXAM BREAST 24132 UNSPECIFIED 04-17-2009 A Santino BURRELL VAGINITIS [facility] AND VULVOVAGINI TIS 7906 OTHER 04-17-2009 A Santino BURRELL ABNORMAL [facility] BLOOD CHEMISTRY 7851 PALPITATION 04-14-2009 [facility] S PHYSICIANS GROUP 2871 QUALITATIVE 02-06-2009 [facility] 1552 MALIGNANT 11-14-2008 [facility] NEOPLASM [facility] LIVER NOT HOSPITAL SPEC PRIMARY/SEC 20284 DENTAL 11-07-2008 GREGORY JUSTIN DMD EXTENDING PSC INTO DENTINE 11272 URINARY 06-18-2008 Fifi BURRELL FREQUENCY [facility] 21358 CLOSED 06-18-2008 [place] FRACTURE OF MEDICAL IMAGING UNSPECIFIED ASSOCIATES BONE OF FOOT 86969 CLOSED 06-06-2008 [place], FRACTURE OF GREGORIO NAVICULAR BONE OF FOOT E8490 PLACE OF 06-05-2008 [place] OCCURRENCE, MEDICAL HOME IMAGING ASSOCIATES E8809 ACCIDENTAL 06-05-2008 [facility] BARROWJulien FALL ON OR MEDICAL FROM OTHER IMAGING STAIRS OR ASSOCIATES STEPS 7964 OTHER 05-29-2008 [facility] ABNORMAL [facility] CLINICAL HOLDING FINDING V180 FAMILY 02-03-2008 [facility] HISTORY OF AMERIC DIABETES HOLDING MELLITUS 7019 UNSPECIFIED 01-30-2008 Fifi BURRELL MD PSC HYPERTROPHI C&ATROPHIC CONDITION SKIN 23958 UNSPECIFIED 01-25-2008 [facility] URETHRITIS [facility] PROF SERV 7295 PAIN IN 12-05-2007 HERNANDEZ SOFT INDRA, TISSUES OF M.D.P.S.C. LIMB 1121 CANDIDIASIS 03-27-2007 Fifi BURRELL OF VULVA AND VAGINA 287.31 Idiopathic [place] thrombocyto [facility] purpura 487.1 Influenza [facility] 573.8 786.50 786.59 793.80 D69.3 [...] Procedure DOS Code Location Performer Comment URINLS 14035 Fifi DOHERTY, DIP 9 INDRA Calix STICK/TAB PSC LET REAGNT NON-AUTO MICRSCPY COLLECTIO 97514 Fifi DOHERTY N VENOUS 9 INDRA DAMON A BLOOD PSC VENIPUNCT URE TRANSFERA 25146 [facility] SE 9 AMERIC AMERIC ASPARTATE HOLDING HOLDING AMINO AST SGOT LIPID 77161 [facility] PANEL 9 AMERIC AMERIC HOLDING HOLDING RADIOLOGI 81097 Santino RUSSO 9 MEDICAL SARAN EXAMINATI IMAGING ON FOOT 2 ASSOCIATE VIEWS S BLOOD 20148 [place] [facility] COUNT 9 [facility] AUTOMATED BLOOD 25968 [place] COUNT [address] [place] [address] W/MNL DIFRNTL WBC COUNT RADEX 48588 TALIA SCHUSTEREY, ANKLE 9 EMERGENCY TRINY S COMPLETE SERVICES MINIMUM 3 VIEWS ASSOCIATE S BLOOD 79428 [place] [facility] [address] [place] [address] AUTO&AUTO DIFRNTL WBC 25 31862 [facility] HYDROXY 9 AMERIC AMERIC INCLUDES HOLDING HOLDING FRACTIONS IF PERFORMED COLLECTIO 67001 [place] N VENOUS 9 [facility] VENIPUNCT URE COLLECTIO 66655 [place] N VENOUS 9 [facility] VENIPUNCT URE BLOOD 31771 [place] COUNT 9 [facility] W/MNL DIFRNTL WBC COUNT BLOOD 45821 [place] COUNT 9 [facility] AUTOMATED TRANSFERA 65750 [facility] SE 9 AMERIC AMERIC ALANINE [place] [address] [facility] PHOSPHATA 9 AMERIC AMERIC SE HOLDING HOLDING ALKALINE COLLECTIO 35027 [facility] N VENOUS 9 AMERIC AMERIC BLOOD [place] [address] [facility] GLUTAMYLT 9 AMERIC AMERIC RASE HOLDING HOLDING GAMMA TRANSFERA 44781 [facility] SE 9 AMERIC AMERIC ASPARTATE HOLDING HOLDING AMINO AST SGOT BASIC 22328 [facility] METABOLIC 9 AMERIC AMERIC PANEL HOLDING HOLDING CALCIUM TOTAL BLOOD 97111 [place] COUNT 9 [facility] W/MNL DIFRNTL WBC COUNT COLLECTIO 68305 [place] N VENOUS 9 [facility] VENIPUNCT URE BLOOD 88000 [place] COUNT 9 [facility] AUTOMATED BLOOD 74877 [place] COUNT 9 [facility] AUTO&AUTO DIFRNTL WBC COLLECTIO 35500 [place] N VENOUS 9 [facility] VENIPUNCT URE BLOOD 39608 [place] COUNT 9 [facility] W/MNL DIFRNTL WBC COUNT COLLECTIO 36942 [place] N VENOUS 9 [facility] VENIPUNCT URE BLOOD 95046 [place] COUNT 9 [facility] AUTOMATED BLOOD 31741 [place] COUNT 9 [facility] AUTO&AUTO DIFRNTL WBC COLLECTIO 89284 [place] N VENOUS 9 [facility] VENIPUNCT URE Encounters Encounter Start End Date Code Location Performer Type Date HOSPITAL [address] [facility] 6 [facility] 6 [facility] - 6 [facility] 6 [facility] - 5 5 [facility] - 5 5 [facility] 5 5 [facility] [place] [id number] [facility] [place] [id number] 4 [facility] 4 4 [facility] - 4 4 [facility] Emergency MEL Tab[facility] (ER[facility] 4 13:06 4 17:07 [facility] - 4 4 [facility] [place] [id number] 3 [facility] 3 3 [facility] [place] [id number] 3 [facility] 3 3 [facility] - 3 3 [facility] 3 3 [facility] 2 2 [facility] - 2 2 [facility] [place] 2 [facility] 1 1 [facility] [place] - 1 1 [facility] [place] [facility] 1 1 [facility] [place] - 1 1 [facility] [place] [facility] 1 1 [facility] - 1 1 [facility] 1 1 [facility] - 1 1 [facility] [place] - 1 1 [facility] [place] - 1 1 [facility] [place] [facility] 1 1 [facility] [place] [facility] 0 0 [facility] [place] [facility] 0 0 [facility] [place] [facility] 0 0 [facility] [place] [facility] 0 0 [facility] [place] [facility] 0 0 [facility] [place] [facility] 0 0 [facility] [place] [facility] 0 0 [facility] [place] [facility] 0 0 [facility] [place] [facility] 0 0 [facility] [place] [facility] 0 0 [facility] [place] - 0 0 [facility] [place] [facility] 0 0 [facility] [place] [facility] 0 [facility] [place] [facility] 0 0 [facility] [place] [facility] 0 0 [facility] [place] [facility] 0 0 [facility] [place] [facility] 0 0 [facility] - 0 0 [facility] [place] [facility] 0 0 [facility] [place] - 0 0 [facility] [place] - 0 0 [facility] [place] - 0 0 [facility] [place] [facility] 0 [facility] [place] [facility] 0 [facility] [place] [facility] 0 0 [facility] [place] [facility] 0 0 [facility] [place] [facility] 0 0 [facility] [place] [facility] 0 0 [facility] [place] [facility] 0 [facility] [place] [facility] 0 0 [facility] [place] [facility] 0 0 [facility] [place] [facility] 0 0 [facility] [place] [facility] 0 [facility] [place] [facility] 0 0 [facility] [place] [facility] [place] [facility] 9 9 [facility] [place] [facility] 9 9 [facility] [place] [facility] 9 [facility] [place] [facility] 9 9 [facility] [place] [facility] 9 9 [facility] [place] [facility] 9 9 [facility] [place] [facility] 9 9 [facility] [place] [facility] 9 9 [facility] [place] [facility] 9 9 [facility] [place] - 9 9 [facility] [place] [facility] 9 9 [facility] [place] [facility] 9 9 [facility] [place] - 9 9 [facility] [place] [facility] 9 9 [facility] [place] [facility] 9 9 [facility] [place] - 9 9 [facility] [place] [facility] 9 9 [facility] [place] - 9 9 [facility] [place] [facility] 9 9 [facility] [place] - 9 9 [facility] [place] [facility] 9 9 [facility] [place] - 9 9 [facility] [place] - 9 9 [facility] OFF[facility] [id number] Fifi DOHERTY [facility] 9 9 INDRA Iglesias VISIT [facility] 25 MINUTES HOSPITAL [facility] 9 9 [facility] [place] - 9 9 [facility] [id number] [place] BERNARDO [facility] 9 9 GREGORIO GREGORIO [facility] 45 MINUTES EMERGENCY [id number] TALIA FREITAS, 9 9 EMERGENCY [facility] SERVICES T VISIT HIGH/URGE ASSOCIATE NT S SEVERITY EMERGENCY [id number] MARIANNA 9 9 [facility] LOW/MODER SEVERITY [facility] - 9 9 [facility] [place] - 9 9 [facility] [place] [facility] 9 9 [facility] [phone] MARY CASTILLO [facility] 9 9 LIYA BURRELL T VISIT [facility] 15 . MINUTES [facility]OSP[facility] - 9 9 [facility] [id number] [facility] 9 9 [facility] 25 Y ONCO [facility] [place] - 9 9 [facility] [place] [facility] 9 9 [facility] [place] [facility] 9 9 [facility] [place] [facility] 8 8 [facility] [place] [facility] 8 8 [facility] [place] [facility] 8 8 [facility] [place] [facility] 8 8 [facility] [place] - [address] [facility] [place] - 8 8 [facility] - 8 8 [facility] 8 8 [facility] [place] - 8 8 [facility] [place] [facility] 8 8 [facility] [place] [facility] 8 8 [facility] [place] [facility] 8 8 [facility] [place] - 8 8 [facility] [place] - 8 8 [facility] [place]
--- OUTSIDE RECORDS SUMMARY | 2017-02-24 14:26 | External Medical Summary Rpt | CCD ---
Author Author , KELY HANCLARISA Address Unknown Phone [email or web address] Care Team Providers Care Mason Tender Name Role Phone A Santino BURRELL MD P[facility], A Unavailable Unavailable Santino BURRELL MD [facility] Unavailable Unavailable [facility] MARY BURRELL, Unavailable Unavailable [facility] MARY BURRELL M[facility] IS[facility], Unavailable Unavailable [facility] Unavailable Unavailable HOSPITAL, [facility] GREGORIO BERNARDO, Unavailable Unavailable GREGORIO BERNARDO [facility], Unavailable Unavailable [facility] TANESHA HILDA, Unavailable Unavailable TANESHA HILDA SARAN ALMENDAREZ, Unavailable Unavailable SARAN ALMENDAREZ [facility] Unavailable Unavailable [facility], [facility] ANJELICA GASTELUM, Unavailable Unavailable ANJELICA GASTELUM JANE E, Unavailable Unavailable HOMAR JUDD ELLEN J, Unavailable Unavailable LIYA CASTILLO GAINEY Unavailable Unavailable DAINA TRINY FREITAS, Unavailable Unavailable TRINY FREITAS [facility] Unavailable Unavailable HOSPITA, [facility] ODELL MIRIAN, ODELL Unavailable Unavailable MIRIAN [facility] Un[facility] Un[facility], [facility] Un[facility] Unavailable H[facility]PITAL, [facility] Unavailable Unavailable HOSPITAL P, [facility] P BOOGIE VEDA, [facility]A Unavailable Unavailable [facility] NANC[facility], Unavailable Unavailable [facility] Un[facility] Un[facility], [facility] Unavailable Unavailable MEDICAL G, [facility] Un[facility] Un[facility], [facility] Unavailable Unavailable HOLDING, [facility] [employer] [facility], Unavailable Unavailable [facility] [facility] Unavailable Unavailable CENTER, [facility] Unavailable Unavailable SERVICES, [facility] VIOLET TOBIAS, Unavailable Unavailable QUE KAISER JR, JR Unavailable Unavailable F, QUE LAZO JR F [facility] Unavailable Unavailable SERV LABOR CONTRACTOR R, [facility] LAB[facility] CONTRACTOR R GREGORY JUSTIN, Unavailable Unavailable GREGORY JUSTIN RACHID, JOSELITO RACHID Unavailable Unavailable NELSON YEE, Unavailable Unavailable NELSON YEE [facility] Unavailable Unavailable [facility] NWABUNOR ISA, Unavailable Unavailable [facility] Un[facility] JOSE L HAYWARD MD Unavailable Unavailable CONSULTING [facility], JOSE L HAYWARD MD [facility] Unavailable Unavailable LAB, [facility]OLOGY [facility]Y LAB TRI PASTRANA, Unavailable Unavailable TRI PASTRANA [facility] Unavailable Unavailable INCORPORAT, [facility] ANDREY BARRON, Unavailable Unavailable ANDREY BARRON [facility] Unavailable Unavailable [facility], [facility] SCIFRES, SCIFRES Unavailable Unavailable SCIFRES ANG, SCIFRES Unavailable Unavailable ANG [facility], Unavailable Unavailable [facility], Unavailable Unavailable [facility] KAVYA MANLEY Unavailable Unavailable Fifi BURRELL WRIGHT, Unavailable Unavailable A C Purpose Continuity of Care Document - 03-27-2007 through 2016 Problems Code Diagnosis DOS Provider Status D6949 OTHER 11-26-2016 [facility] THROMBOCYT HEMATOLOGY PENIA ONCO N393 STRESS 09-28-2016 [facility] INCONT[facility]ENC [facility] MALE D46Z OTHER 08-25-2016 [facility] STIC SYNDROMES D696 THROMBOCYTO 08-25-2016 [facility] UNSPECIFIED [id number] HEMIPLEGIA 08-25-2016 [facility] CEREBRAL INFARCT AFF LT NON-DOM N312 FLACCID 08-25-2016 [facility] NEUROPATHIC [facility] BLADDER NEC R32 UNSPECIFIED 08-25-2016 [facility] URINARY [facility] INCONTINENC E R449 UNS SX & 08-25-2016 [facility] SIGNS INV HOSPITAL GEN SENSATION & PERCEPTIONS C74345 PERSONAL 08-25-2016 [facility] OTHER MALIGNANT NEOPLASM SKIN Z9081 ACQUIRED 08-25-2016 [facility] HOSPITAL SPLEEN N3946 MIXED 08-24-2016 [facility] P Z1231 ENCOUNTER 08-24-2016 [facility] P NEOPLASM BREAST D469 MYELODYSPLA 07-12-2016 [facility] SYNDROME UNSPECIFIED D693 IMMUNE 07-12-2016 [facility] THROMBOCYTO [facility] PENIC PURPURA J439 EMPHYSEMA 07-02-2016 [facility] UNSPECIFIED HOSPITAL R05 COUGH 07-02-2016 [facility] R0602 SHORTNESS 07-02-2016 [facility] N390 URINARY 06-29-2016 [facility] INFECTION INCORPORAT SITE NOT SPECIFIED R319 HEMATURIA 06-29-2016 [facility] UNSPECIFIED [facility]AGNOSTICS INCORPORAT R079 CHEST PAIN 06-26-[address] [facility] UNSPEC[facility] MEDICAL IMAGING ASS P18050 PINGUECULIT 04-01-2016 SC[facility] IS BILATERAL H5213 MYOPIA 04-01-2016 [facility] BILATERAL X47062 REGULAR 04-01-2016 [facility] ASTIGMATISM BILATERAL J40 BRONCHITIS 02-20-2016 A Santino DAWN MD P[facility] SPECIFIED ACUTE OR CHRONIC R300 DYSURIA 02-20-2016 A Santino BURRELL MD PSC R6889 OTHER 02-20-2016 A Santino BURRELL GENERAL [facility] SYMPTOMS AND SIGNS Z833 FAMILY 02-20-2016 A Santino BURRELL HISTORY OF PSC DIABETES MELLITUS J329 CHRONIC 02-10-2016 A Santino BURRELL SINUSITIS [facility] UNSPECIFIED Z23 ENCOUNTER 02-10-2016 A Santino PARKS MD PSC IMMUNIZATIO N C751 MALIGNANT 12-04-2015 [facility] GLAND R10703 MIGRAINE 12-04-2015 NEW UNS NOT [facility] INTRACT W/O CLINIC PSC STATUS MIGRAINOSUS R413 OTHER 12-04-2015 NEW AMNESIA [facility] PSC R0989 OT SPEC SX 11-27-2015 NEW & SIGNS [facility] PSC CIRC & RESP SYS D649 ANEMIA 08-29-2015 NEW UNSPECIFIED [facility] PSC I10 ESSENTIAL 07-23-2015 [facility] HYPERTENSIO MEDICAL G N I2510 ASHD [place] 07-23-2015 [facility] 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 E785 HYPERLIPIDE 07-22-2015 [facility] UNSPECIFIED I208 OTHER FORMS 07-22-2015 [facility] MEDICAL G K210 GASTRO-ESOP 07-22-2015 [facility] REFLUX DISEASE W/ ESOPHAGITIS M359 SYSTEMIC 07-22-2015 [facility] CONNECTIVE TISSUE UNS R9439 ABNORMAL 07-22-2015 [facility] CARDIOVASCU LR FUNCTION STUDY Z8673 PERSONAL HX 07-22-2015 [facility] TIA & HOSPITAL CEREB INFARCT NO RESID DEFICIT R0600 DYSPNEA 07-08-2015 [facility]PECIFIED [facility] ASS Q02210 COMBINED 07-01-2015 [facility] IS[facility] AGE-RELATED CATARACT LEFT EYE H269 UNSPECIFIED 05-27-2015 [facility]ACT [facility] R110 NAUSEA 04-23-2015 Fifi BURRELL MD PSC R6883 CHILLS 04-23-2015 Fifi JOSHI MD PSC FEVER N93561 OTHER LONG 04-02-2015 [facility] CURRENT DRUG THERAPY Z9049 ACQUIRED 04-02-2015 [facility] SPEC PARTS DIGESTIVE TRACT D67643 ACQUIRED 04-02-2015 [facility] BOTH CERVIX AND UTERUS H2513 AGE-RELATED 03-27-2015 SC[facility] ANG NUCLEAR CATARACT BILATERAL M797 FIBROMYALGI 01-29-2015 Fifi Calix MD PSC M2010 HALLUX 12-26-2014 [facility] ACQUIRED IMAGING ASS UNSPECIFIED FOOT M2011 HALLUX 12-26-2014 [facility] ACQUIRED INC RIGHT FOOT M7731 CALCANEAL 12-26-2014 [facility] SPUR RIGHT MEDICAL FOOT IMAGING ASS M7989 OTHER 12-26-2014 [facility] SPECIFIED MEDICAL SOFT TISSUE IMAGING ASS DISORDERS 56811 PRIMARY 12-18-2014 [facility] UNSPECIFIED ONCO 51677 IMMUNE 11-05-2014 [facility] THROMBOCYTO [facility] HOS[facility] PENIC INC PURPURA 5693 HEMORRHAGE 11-05-2014 [facility] OF RECTUM [facility] HOS[facility] AND ANUS INC 72514 OSTEOARTHRO 11-05-2014 [facility] SIS UNSPEC MEDICAL WHETHER IMAGING ASS GEN/LOC LOWER LEG 19463 PAIN IN 11-05-2014 [facility] JOINT, SITE MEM HOS[facility] INC UNSPECIFIED 69817 PAIN IN 11-05-2014 [place] JOINT, MEDICAL LOWER LEG IMAGING ASS 7291 UNSPECIFIED 11-05-2014 [facility] MYALGIA [facility] AND INC MYOSITIS 33778 UNSPECIFIED 10-25-2014 [facility] 88504 REFLUX 10-25-2014 [facility] 02020 ESOPHAGEAL 10-25-2014 [facility] 5379 UNSPECIFIED 10-25-2014 [facility]ORDER [facility] OF STOMACH AND DUODENUM 5533 DIAPHRAGMAT 10-25-2014 [facility] FRANCISCO J W/O SURGERY MENTION CENTER OBSTRUCTION /GANGREN 77709 DIVERTICULO 10-25-2014 [facility] SIS OF SURGERY COLON CENTER 7515 OTHER 10-25-2014 [facility] CONGENITAL [facility] ANOMALIES CENTER OF INTESTINE V571 OTHER 08-01-2014 [facility] THERAPY INC 2859 UNSPECIFIED 07-05-2014 [facility] ANEMIA [facility] P 4019 UNSPECIFIED 07-05-2014 [facility] ESSENTIAL [facility] P N 515 POSTINFLAMM 07-05-2014 [facility] ATORY MEDICAL PULMONARY IMAGING ASS FIBROSIS 7241 PAIN IN 07-05-2014 [facility] THORACIC [facility] SPINE IMAGING ASS 8471 THORACIC 07-05-2014 [facility] P 4611 ACUTE 06-20-2014 A Santnio DURAN MD PSC SINUSITIS 4779 ALLERGIC 06-20-2014 A Santino BURRELL RHINITIS PSC CAUSE UNSPECIFIED 77510 HIDRADENITI 06-20-2014 Fif[place]erales [place] PSC 30626 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[facility] 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 V5869 LONG-TERM 04-29-2014 [facility] (CURRENT) CENTER OF USE OF [place] OTHER MEDICATIONS 95687 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 [facility] CEREBROVASC ULAR DISEASE 19098 OTHER 01-23-2014 [facility] FATIGUE V1083 PERSONAL 01-23-2014 [facility] OTHER MALIGNANT NEOPLASM SKIN 2111 BENIGN 12-14-2013 [facility] NEOPLASM OF SURGERY STOMACH CENTER 22007 ABDOMINAL 12-14-2013 [facility] PAIN, EPIGASTRIC V1272 PERSONAL 11-09-2013 [facility] HISTORY OF COLONIC POLYPS 88473 UNSPECIFIED 10-30-2013 [facility] CEREBRAL [facility] ARTERY INC OCCLUSION W/INFARCT 4359 UNSPECIFIED 08-17-2013 [facility]ENT SERV CEREBRAL FOUNDATION ISCHEMIA 436 ACUTE BUT 08-17-2013 [facility] ILL-DEFINED SERV FOUNDATIO CEREBROVASC ULAR DISEASE V1254 PERSONAL HX 08-17-2013 [facility] TIA & CI SERV W/O FOUNDATION RESIDUAL DEFICITS 2724 OTHER AND 08-16-2013 [facility] UNSPECIFIED [facility]OS[facility] INC HYPERLIPIDE YING 4371 OTH 08-16-2013 [facility] GENERALIZED MEDICAL ISCHEMIC IMAGING ASS CEREBROVASC ULAR DISEASE 47837 OTHER 08-16-2013 [facility] DISEASES OF AMBULANCE LUNG NOT SERV LABOR CONTRACTOR R ELSEWHERE CLASSIFIED 52297 MUSCLE 08-16-2013 [facility] WEAKNESS AMBULANCE (GENERALIZE SERV LABOR CONTRACTOR R D) 41764 OTHER 08-16-2013 [facility] RESPIRATORY AMBULANCE [place] [address] UNSPECIFIED 08-03-2013 [place] [address] CONJUNCTIVA 07-22-2013 FORT[facility] DAINA L HEMORRHAGE 24411 CEREBRAL 05-11-2013 [facility] THROMBOSIS SERV WITH [facility] CEREBRAL INFARCTION 79653 OTHER 05-10-2013 [place] [facility] CONDITIONS SERV OF BRAIN [facility] 7949 NONSPECIFIC 05-10-2013 [place] [facility] ABNORM SERV RESULTS OTH [facility] SPEC FUNCT STUDY 2875 UNSPECIFIED 05-09-2013 [facility] THROMBOCYTO SERVICES PENIA 78670 OTHER 04-18-2013 A Santino SANTOS MD [facility] STATES 4659 ACUTE URIS 04-18-2013 A Santino CALERO [facility] UNSPECIFIED SITE 7881 DYSURIA 04-18-2013 A Santino BURRELL MD PSC 3480 CEREBRAL 02-07-2013 [facility] CYSTS [facility]ICAL IM[facility]ING ASS 04246 MEMORY LOSS 02-07-2013 [facility] INC 99057 OTHER 10-19-2012 DERMATOLOGY SPECIFIED ERYTHEMATOU CONSULTANTS S CONDITION PSC OTHER 06440 INFLAMED 10-19-2012 DERMATOLOGY SEBORRHEIC KERATOSIS CONSULTANTS [facility] 41654 PAIN IN 08-08-2012 [facility] JOINT, MEM HOSP SHOULDER INC REGION 55944 OTHER 05-08-2012 [facility] THROMBOCYTO HEMATOLOGY PENIA ONCO 4293 CARDIOMEGAL 05-05-2012 [facility] MEDICAL IMAGING ASS 4660 ACUTE 05-03-2012 [facility] 4610 ACUTE 04-12-2012 A Santino BURRELL MAXILLARY [facility] SINUSITIS 496 CHRONIC 04-12-2012 TANESHA AIRWAY HILDA OBSTRUCTION NEC 7862 COUGH 04-12-2012 [facility] INC 81397 INFLUENZA 03-30-2012 A Santino VILLEGAS MD [facility] INFLUENZA A OTH MANIFEST 27418 WHEEZING 03-30-2012 A Santino BURRELL MD PSC 36664 SHORTNESS 03-26-2012 TANESHA OF BREATH HILDA 486 PNEUMONIA, 03-25-2012 KAVYA OWENS ORGANISM UNSPECIFIED 4871 INFLUENZA 03-25-2012 [facility] WITH OTHER MEM HOS[facility] RESPIRATORY INC MANIFESTATI ONS 45386 TACHYPNEA 03-25-2012 KAVYA OWENS 17700 SUDDEN 03-17-2012 [facility] VISUAL LOSS ISA 3698 UNQUALIFIED 03-17-2012 [facility] VISUAL [facility] LOSS, ONE INC EYE 3699 UNSPECIFIED 03-17-2012 T[facility] VISUAL HILDA LOSS 14402 NAUSEA 12-07-2011 [facility] 30059 ABDOMINAL 12-07-2011 [place] PAIN, COMMUNITY UNSPECIFIED HOSPITA SITE 71398 ACUTE 12-02-2011 [facility] GASTRITIS NKLIN NANCY WITHOUT MENTION OF HEMORRHAGE 86950 OTHER SPEC 12-02-2011 [place] [facility]STR[facility] COMMUNITY WITHOUT HOSPITA MENTION HEMORRHAGE 7871 HEARTBURN 12-02-2011 [facility] NKLIN NANCY 25057 DYSPHAGIA 11-01-2011 [facility] UNSPECIFIED MEDICAL IMAGING ASS 01055 DYSPHAGIA 11-01-2011 [facility] ORAL PHASE [facility] INC V711 OBSERVATION 11-01-2011 [facility] FOR [facility] SUSPECTED INC MALIGNANT NEOPLASM 5990 URINARY 07-29-2011 JOSELITO RACHID TRACT INFECTION SITE NOT SPECIFIED 7804 DIZZINESS 02-27-2011 MCANITRAMIE AND MICHELINE GIDDINESS 7840 HEADACHE 02-27-2011 [facility] 7919 OTHER 02-27-2011 VIO[facility] MARTINEZ NONSPECIFIC MICHELINE FINDING EXAMINATION OF URINE 91528 OBSTRUCTIVE 12-08-2010 JOSE L MAINOR SLEEP APNEA CONSULTING SRV 90441 OTHER 12-08-2010 JOSE L HAYWARD SPECIFIED CARDIAC CONSULTING DYSRHYTHMIA SRV S 63633 PRECORDIAL 12-08-2010 JOSE L HAYWARD PAIN CONSULTING SRV 7821 RASH AND 10-20-2010 [facility] OTHER CENTER OF NONSPECIFIC [place] SKIN ERUPTION V7612 OTHER 08-18-2010 [facility] SCREENING [facility] MAMMOGRAM INC 23908 UNSPECIFIED 08-16-2010 [facility] SITE OF EMERGENCY ANKLE SERVICES SPRAIN AND STRAIN 60288 SPRAIN AND 08-16-2010 [facility] STRAIN OF EMERGENCY UNSPECIFIED SERVICES SITE OF FOOT 9597 INJURY 08-16-2010 [facility] OTHER&UNSPE MEDICAL CIFIED KNEE IMAGING ASS LEG ANKLE&FOOT E8889 UNSPECIFIED 08-16-2010 [facility]ALL [facility] SERVICES 33827 PAIN IN 07-30-2010 [place] JOINT MEDICAL PELVIC IMAGING ASS REGION AND THIGH 26360 OTHER 07-27-2010 MARY BURRELL, PAIN [facility] 7213 LUMBOSACRAL 07-27-2010 MARY BURRELL SPONDYLOSIS [facility] WITHOUT MYELOPATHY 7242 LUMBAGO 07-27-2010 MARY BURRELL M[facility] E9479 UNSPEC 03-26-2010 [facility] RX/MEDICINA [place] [address] NUCLEAR 02-10-2010 [facility] SCLEROSIS 33412 OTHER 02-10-2010 [facility] VITREOUS OPACITIES 21593 UNSPECIFIED 01-28-2010 [facility] IRINA NANCY CONSTIPATIO N 4011 ESSENTIAL 11-01-2009 [facility] HYPERTENSIO [place] INC N, BENIGN 2720 PURE 08-26-2009 [facility] HYPERCHOLES [facility] 32730 ATROPHIC 08-26-2009 [facility] GASTRITIS [facility] WITHOUT HOSPITAL MENTION OF HEMORRHAGE 50469 OTHER 08-26-2009 [facility] SYMPTOMS [facility] INVOLVING HOSPITAL HEAD AND NECK 37348 OTH 08-22-2009 [facility] NONSPECIFIC PHYSICIANS ABNORM CV GROUP SYSTEM FUNCTION STUDY 28764 CHEST PAIN 08-11-2009 [facility] UNSPECIFIED PHYSICIANS GROUP 09354 CORONARY 08-07-2009 [facility] CORONARY ARTERY V7651 SPECIAL 07-18-2009 [facility] SCREENING ANESTHESIA FOR PSC MALIGNANT NEOPLASMS COLON 53092 SUPRAVENTRI 07-14-2009 [facility] CULAR PHYSICIANS PREMATURE GROUP BEATS 70115 OTHER CHEST 07-14-2009 [facility] PAIN PHYSICIANS GROUP V762 SCREENING 06-02-2009 PATHOLOGY & FOR CYTOLOGY MALIGNANT LAB NEOPLASM OF THE CERVIX 98549 UNSPECIFIED 05-20-2009 [facility] ABNORMAL MEDICAL MAMMOGRAM IMAGING ASSOCIATES 01073 OTHER 05-20-2009 [facility] ABNORMAL [facility] FINDING INC RADIOLOGICA L EXAM BREAST 00815 UNSPECIFIED 04-17-2009 A Santino BURRELL VAGINITIS PSC AND VULVOVAGINI TIS 7906 OTHER 04-17-2009 A Santino BURRELL ABNORMAL [facility] BLOOD CHEMISTRY 7851 PALPITATION 04-14-2009 [facility] S PHYSICIANS GROUP 2871 QUALITATIVE 02-06-2009 [facility] [facility] 1552 MALIGNANT 11-14-2008 [facility] NEOPLASM [facility] LIVER NOT HOSPITAL SPEC PRIMARY/SEC 34574 DENTAL 11-07-2008 GREGORY JUSTIN DMD EXTENDING PSC INTO DENTINE 20229 URINARY 06-18-2008 A Santino BURRELL FREQUENCY [facility] 07819 CLOSED 06-18-2008 [facility] FRACTURE OF MEDICAL IMAGING UNSPECIFIED ASSOCIATES BONE OF FOOT 47884 CLOSED 06-06-2008 [place] FRACTURE OF GREGORIO NAVICULAR BONE OF FOOT E8490 PLACE OF 06-05-2008 [place] OCCURRENCE, MEDICAL HOME IMAGING ASSOCIATES E8809 ACCIDENTAL 06-05-2008 [place] FALL ON OR MEDICAL FROM OTHER IMAGING STAIRS OR ASSOCIATES STEPS 7964 OTHER 05-29-2008 [facility] ABNORMAL [facility] HOLDING FINDING V180 FAMILY 02-03-2008 [facility] HISTORY OF AMERIC DIABETES HOLDING MELLITUS 7019 UNSPECIFIED 01-30-2008 Fifi BURRELL MD PSC HYPERTROPHI C&ATROPHIC CONDITION SKIN 33473 UNSPECIFIED 01-25-2008 [facility] SERV 7295 PAIN IN 12-05-2007 HERNANDEZ SOFT INDRA, TISSUES OF M.D.P.S[facility]. LIMB 1121 CANDIDIASIS 03-27-2007 Fifi BURRELL OF VULVA AND VAGINA Procedures Procedure DOS Code Location Performer Comment URINLS 41915 Fifi YEE, DIP 9 INDRA Calix STICK/TAB PSC LET REAGNT NON-AUTO MICRSCPY TRANSFERA 56903 [facility] SE 9 AMERIC AMERIC ASPARTATE HOLDING HOLDING AMINO AST SGOT COLLECTIO 09017 Fifi YEE, N VENOUS 9 INDRA Calix BLOOD PSC VENIPUNCT URE RADIOLOGI 96341 [place] Santino ALMENDAREZ 9 MEDICAL SARAN EXAMINATI IMAGING ON FOOT 2 ASSOCIATE VIEWS S LIPID 10816 [facility] PANEL 9 AMERIC AMERIC HOLDING HOLDING BLOOD 36749 [place] [facility] [address] [place] [address] AUTOMATED BLOOD 85198 [place] [facility] [address] [place] [address] W/MNL DIFRNTL WBC COUNT RADEX 27165 TALIA FREITAS, ANKLE 9 EMERGENCY TRINY S COMPLETE SERVICES MINIMUM 3 VIEWS ASSOCIATE S BLOOD 46077 [place] [facility] [address] [place] [address] AUTO&AUTO DIFRNTL WBC 25 08284 [facility] HYDROXY 9 AMERIC AMERIC INCLUDES HOLDING HOLDING FRACTIONS IF PERFORMED COLLECTIO 35540 [place] N VENOUS 9 [facility] VENIPUNCT URE BLOOD 52454 [place] COUNT [address] [place] [address] W/MNL DIFRNTL WBC COUNT BLOOD 91510 [place] COUNT [address] [place] [address] AUTOMATED COLLECTIO 06770 [place] N VENOUS 9 [facility] [place] [address] LAB [facility] PHOSPHATA 9 AMERIC AMERIC [place] [address] LAB [facility] LAB [facility] GLUTAMYLT 9 AMERIC AMERIC RASE HOLDING HOLDING GAMMA TRANSFERA 75562 LAB [facility] SE 9 AMERIC AMERIC ASPARTATE HOLDING HOLDING AMINO AST SGOT BASIC 29121 LAB [facility] METABOLIC 9 AMERIC AMERIC PANEL HOLDING HOLDING CALCIUM TOTAL TRANSFERA 76962 [facility] SE 9 AMERIC AMERIC ALANINE HOLDING HOLDING AMINO ALT SGPT COLLECTIO 20267 [facility] N VENOUS 9 AMERIC AMERIC BLOOD HOLDING HOLDING VENIPUNCT URE BLOOD 83083 [place] COUNT 9 [facility] W/MNL DIFRNTL WBC COUNT COLLECTIO 26357 [place] N VENOUS 9 [facility] VENIPUNCT URE BLOOD 67018 [place] COUNT [address] [place] [address] AUTOMATED BLOOD 75693 [place] COUNT [address] [place] [address] AUTO&AUTO DIFRNTL WBC COLLECTIO 99099 [place] N VENOUS 9 [facility] VENIPUNCT URE BLOOD 12923 [place] COUNT 9 [facility] W/MNL DIFRNTL WBC COUNT COLLECTIO 75210 [place] N VENOUS 9 [facility] VENIPUNCT URE BLOOD 6[address]93 [place] [address] [facility] AUTOMATED BLOOD 07843 [place] COUNT [address] [place] [address] AUTO&AUTO DIFRNTL WBC COLLECTIO 69822 [place] N VENOUS 9 [facility] VENIPUNCT URE Encounters Encounter Start End Date Code Location Performer Type Date HOSPITAL [address] [place] [address] [facility] [place] [address] [facility] [place] [address] 7 [facility] 7 7 [facility] - 6 6 [facility] [place] [address] 6 [facility] - 6 6 [facility] - 6 6 [facility] [place] [address] 6 [facility] - 4 [facility] [place] [id number] 4 [facility] [place] - 4 4 [facility] [place] [facility] 4 4 [facility] [place] [facility] 4 4 [facility] - 3 3 [facility] [place] [facility] 3 3 [facility] [place] [id number] 3 [facility] [place] - 3 3 [facility] [place] [facility] 3 [facility] [place] [facility] 3 3 [facility] [place] [facility] 2 2 [facility] [place] [facility] [place] [facility] [place] [facility] 1 [facility] [place] [facility] 1 1 [facility] [place] [facility] 1 1 [facility] [place] - 1 1 [facility] [place] 1 1 [facility] [place] - 1 1 [facility] [place] [facility] [place] [facility] 1 [facility] [place] [facility] 1 [facility] [place] 1 1 [facility] [place] 1 1 [facility] [place] - 0 0 [facility] [place] [facility] 0 0 [facility] [place] [facility] 0 0 [facility] 0 [facility] [place] [facility] 0 0 [facility] [place] [facility] 0 0 [facility] [place] [facility] 0 0 [facility] [place] [facility] 0 [facility] [place] [facility] 0 [facility] [place] [facility] 0 [facility] [place] [facility] [place] [place] [facility] 0 [facility] [facility] [place] [facility] [place] [place] [facility] [place] [facility] [place] [facility] [place] [facility] 0 [facility] [facility] 0 [facility] [place] [facility] [place] [facility] 0 [facility] [place] [facility] 0 [facility] [place] [facility] [place] [facility] 9 [facility] 9 9 [facility] [place] [facility] 9 9 [facility] 9 [facility] 9 [facility] [facility] 9 9 [facility] [place] [facility] 9 9 [facility] 9 [facility] 9 [facility] [facility] 9 [facility] [place] [facility] 9 9 [facility] [place] [facility] 9 9 [facility] [place] [facility] 9 9 [facility] [place] [facility] 9 9 [facility] [place] [facility] 9 9 [facility] [place] [facility] [address] [facility] [place] - [address] [facility] [place] - [address] [facility] [place] [facility] 9 9 [facility] [place] - 9 9 [facility] [place] [facility] 9 9 [facility] 9 9 [facility] [place] - 9 9 [facility] T OFFICE [id number] FINESSE SHE[place] 9 9 INDRA Calix T VISIT PSC 25 MINUTES [facility] 9 [facility] T OFFICE [id number] [place] BERNARDO OUTPATIEN 9 9 GREGORIO PERKINS T [facility] 45 MINUT[facility] EMERGENCY [id number] [place] 9 9 [facility] T VISIT LOW/MODER SEVERITY EMERGENCY [id number] TALIA FREITAS, 9 9 EMERGENCY [facility] SERVICES T VISIT HIGH/URGE ASSOCIATE NT S [facility] [place] - 9 9 [facility] 9 [facility] 9 9 [facility] T OFFICE [id number] [facility] 9 LIYA BURRELL T NGUYỄN AdamePPawanSPawanC 15 . [facility] [place] [facility] [address] [facility] [id number] [facility] 9 9 [facility] VISIT HEMATOLOG 25 Y [facility] [place] [facility] 9 9 [facility] [place] [facility] 9 9 [facility] [place] [facility] 9 9 [facility] [place] - 8 8 [facility] [place] [facility] 8 8 [facility] [place] [facility] 8 8 [facility] [place] [facility] 8 8 [facility] [place] - 8 8 [facility] [place] [facility] 8 8 [facility] [place] - 8 8 [facility] [place] [facility] 8 8 [facility] [place] [facility] 8 8 [facility] [place] - 8 8 [facility] [place] [facility] 8 8 [facility] [place] [facility] 8 8 [facility] [place] - 8 8 [facility] [place] [facility] 8 8 [facility] [place] [facility] 8 8 [facility]
--- OUTSIDE RECORDS SUMMARY | 2017-02-24 14:26 | External Medical Summary Rpt | CCD ---
Author Author , KELY HANCLARISA Address Unknown Phone [email or web address] Care Team Providers Care Freight Caller Name Role Phone A Santino BURRELL MD [facility], A Unavailable Unavailable Santino BURRELL MD [facility] Unavailable Unavailable [facility], [facility] MARY BURRELL, Unavailable Unavailable [facility] MARY BURRELL [facility] [place] [facility], Unavailable Unavailable [place] [facility] Unavailable Unavailable HOSPITAL, [facility] GREGORIO BERNARDO, Unavailable Unavailable GREGORIO BERNARDO [facility], Unavailable Unavailable [facility] TANESHA HILDA, Unavailable Unavailable TANESHA HILDA SARAN ALMENDAREZ, Unavailable Unavailable SARAN ALMENDAREZ [facility] Unavailable [facility]available [facility], [facility] ANJELICA GASTELUM, Unavailable Unavailable ANJELICA GASTELUM JANE E, Unavailable Unavailable HOMAR JUDD ELLEN J, Unavailable Unavailable LIYA CASTILLO GAINEY Unavailable Unavailable DAINA TRINY FREITAS, Unavailable Unavailable TRIN[facility] F[facility]AS [facility] Un[facility], [facility] ODELL MIRIAN, ODELL Unavailable Unavailable MIRIAN [facility] Unavailable Unavailable INC, [facility] Un[facility] Unavailable [facility], [facility] Unavailable Unavailable HOSPITAL P, [facility] P BOOGIE VEDA, [facility] Unavailable Unavailable [facility]ER[facility] NANCY, Unavailable Unavailable [facility] Un[facility] Unavailable [facility], [facility] Unavailable Unavailable MEDICAL G, [facility] Un[facility] Unavailable Unavailable HOLDING, [facility], Unavailable Unavailable [facility] Unavailable Unavailable CENTER, [facility] Unavailable Unavailable SERVICES, [facility] VIOLET TOBIAS, Unavailable Unavailable QUE [facility]AIS[facility] JR, JR Unavailable Unavailable F, QUE LAZO JR F [facility] Unavailable Unavailable SERV CERAMIC COATER MACHINE R, [facility] R GREGORY JUSTIN, Unavailable Unavailable GREGORY JUSTIN RACHID, JOSELITO RACHID Unavailable Unavailable NELSON YEE, Unavailable Unavailable NELSON YEE [facility] Unavailable Unavailable [facility], [facility], Unavailable Unavailable [facility] Un[facility] JOSE L HAYWARD MD Unavailable Unavailable CON[facility]ULTING [facility], JOSE L HAYWARD MD [facility]Y [facility] CYTOLOGY Unavailable Unavailable LAB, [facility]OLOGY [facility]TOLOGY LAB TRI PASTRANA, Unavailable Unavailable TRI PASTRANA [facility] Unavailable Unavailable INCORPORAT, [facility] ANDREY BARRON, Unavailable Unavailable ANDREY BARRON [place] Unavailable Unavailable HEMATOLOGY ONCO, [facility] SCIFRES, SCIFRES Unavailable Unavailable SCIFRES ANG, SCIFRES Unavailable Unavailable ANG [facility], Unavailable Unavailable [facility], Unavailable Unavailable [facility] KAVYA MANLEY Unavailable Unavailable Fifi BURRELL WRIGHT, Unavailable Unavailable A C Purpose Continuity of Care Document - 03-27-2007 through 2016 Problems Code Diagnosis DOS Provider Status D6949 OTHER 11-26-2016 [facility] THROMBOCYT HEMATOLOGY PENIA ONCO N393 STRESS 09-28-2016 [facility] INCONTINENC [facility] MALE D46Z OTHER 08-25-2016 [facility] STIC SYNDROMES D696 THROMBOCYTO 08-25-2016 [facility] UNSPECIFIED R37348 HEMIPLEGIA 08-25-2016 [facility] CEREBRAL INFARCT AFF LT NON-DOM N312 FLACCID 08-25-2016 [facility] NEUROPATHIC [facility] BLADDER NEC R32 UNSPECIFIED 08-25-2016 [facility] URINARY [facility] INCONTINENC E R449 UNS SX & 08-25-2016 [facility] SIGNS INV HOSPITAL GEN SENSATION & PERCEPTIONS X87977 PERSONAL 08-25-2016 [facility] OTHER MALIGNANT NEOPLASM SKIN Z9081 ACQUIRED 08-25-2016 [facility] OF HOSPITAL SPLEEN N3946 MIXED 08-24-2016 [facility] P Z1231 ENCOUNTER 08-24-2016 [facility] P NEOPLASM BREAST D469 MYELODYSPLA 07-12-2016 [facility] SYNDROME UNSPECIFIED D693 IMMUNE 07-12-2016 [facility] THROMBOCYTO [facility] PENIC PURPURA J439 EMPHYSEMA 07-02-2016 [facility] UNSPECIFIED HOSPITAL R05 COUGH 07-02-2016 [facility] R0602 SHORTNESS 07-02-2016 [facility] N390 URINARY 06-29-2016 [facility] INFECTION INCORPORAT SITE NOT SPECIFIED R319 HEMATURIA 06-29-2016 [facility] UNSPECIFIED [facility]NOSTICS INCORPORAT R079 CHEST PAIN 06-26-2016 [facility] A44139 PINGUECULIT 04-01-2016 [facility] IS BILATERAL H5213 MYOPIA 04-01-2016 [facility] BILATERAL X14888 REGULAR 04-01-2016 [facility] ASTIGMATISM BILATERAL J40 BRONCHITIS 02-20-2016 A Santino DAWN MD PSC SPECIFIED ACUTE OR CHRONIC R300 DYSURIA 02-20-2016 A Santino BURRELL MD PSC R6889 OTHER 02-20-2016 A Santino BURRELL GENERAL [facility] SYMPTOMS AND SIGNS Z833 FAMILY 02-20-2016 A Santino BURRELL HISTORY OF PSC DIABETES MELLITUS J329 CHRONIC 02-10-2016 A Santino BURRELL SINUSITIS [facility] UNSPECIFIED Z23 ENCOUNTER 02-10-2016 A Santino PARKS MD PSC IMMUNIZATIO N C751 MALIGNANT 12-04-2015 NEW NEOPLASM OF [facility] PSC GLAND T72654 MIGRAINE 12-04-2015 NEW UNS NOT [facility] INTRACT W/O CLINIC PSC STATUS MIGRAINOSUS R413 OTHER 12-04-2015 NEW AMNESIA [facility] PSC R0989 OT SPEC SX 11-27-2015 NEW & SIGNS [facility] INVLV THE CLINIC PSC CIRC & RESP SYS D649 ANEMIA 08-29-2015 NEW UNSPECIFIED [facility] PSC I10 ESSENTIAL 07-23-2015 [facility] HYPERTENSIO MEDICAL G N I2510 ASHD P[place]OB[place] 07-23-2015 [facility] 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 E785 HYPERLIPIDE 07-22-2015 [facility] UNSPECIFIED I208 OTHER FORMS 07-22-2015 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 H269 UNSPECIFIED 05-27-2015 [facility] CATARACT [facility] R110 NAUSEA 04-23-2015 Fifi BURRELL MD PSC R6883 CHILLS 04-23-2015 Fifi JOSHI MD PSC FEVER Z13973 OTHER LONG 04-02-2015 [facility] CURRENT DRUG THERAPY Z9049 ACQUIRED 04-02-2015 [facility] SPEC PARTS DIGESTIVE TRACT U72338 ACQUIRED 04-02-2015 [facility] BOTH CERVIX AND UTERUS H2513 AGE-RELATED 03-27-2015 SC[facility] ANG NUCLEAR CATARACT BILATERAL M797 FIBROMYALGI 01-29-2015 Fifi Calix MD PSC M2010 HALLUX 12-26-2014 [place] [facility] ACQUIRED IMAGING ASS UNSPECIFIED FOOT M2011 HALLUX 12-26-2014 [facility] ACQUIRED INC RIGHT FOOT M7731 CALCANEAL 12-26-2014 [place] SPUR RIGHT MEDICAL FOOT IMAGING ASS M7989 OTHER 12-26-2014 [place] SPECIFIED MEDICAL SOFT TISSUE IMAGING ASS DISORDERS 26258 PRIMARY 12-18-2014 [facility] UNSPECIFIED ONCO 00583 IMMUNE 11-05-2014 [facility] THROMBOCYTO [facility] PENIC INC PURPURA 5693 HEMORRHAGE 11-05-2014 [facility] OF RECTUM [facility] AND ANUS INC 09107 OSTEOARTHRO 11-05-2014 [place] SIS UNSPEC MEDICAL WHETHER IMAGING ASS GEN/LOC LOWER LEG 76569 PAIN IN 11-05-2014 [facility] JOINT, SITE MEM HOS[facility] INC UNSPECIFIED 03106 PAIN IN 11-05-2014 [place] [facility]INT, MEDICAL LOWER LEG IMAGING ASS 7291 UNSPECIFIED 11-05-2014 [facility] MYALGIA [facility] AND INC MYOSITIS 72963 UNSPECIFIED 10-25-2014 [facility] 33234 REFLUX 10-25-2014 [facility] 70090 ESOPHAGEAL 10-25-2014 [facility] REFLUX SURGERY CENTER 5379 UNSPECIFIED 10-25-2014 [facility] OF STOMACH AND DUODENUM 5533 DIAPHRAGMAT 10-25-2014 [facility] J W/O SURGERY MENTION CENTER OBSTRUCTION /GANGREN 88181 DIVERTICULO 10-25-2014 [facility] SIS OF SURGERY COLON CENTER 7515 OTHER 10-25-2014 [facility] CONGENITAL [facility]GERY ANOMALIES CENTER OF INTESTINE V571 OTHER 08-01-2014 [facility] THERAPY INC 2859 UNSPECIFIED 07-05-2014 [place] [facility] P 4019 UNSPECIFIED 07-05-2014 [place] ESSENTIAL [facility] N 515 POSTINFLAMM 07-05-2014 [place] ATORY MEDICAL PULMONARY IMAGING ASS FIBROSIS 7241 PAIN IN 07-05-2014 [place] THORACIC MEDICAL SPINE IMAGING ASS 8471 THORACIC 07-05-2014 [facility] P 4611 ACUTE 06-20-2014 A Santino DURAN MD PSC SINUSITIS 4779 ALLERGIC 06-20-2014 A Santino BURRELL RHINITIS PSC CAUSE UNSPECIFIED 82061 HIDRADENITI 06-20-2014 Fifi Perales MD PSC 78250 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 FATIGUE V1083 PERSONAL 01-23-2014 [facility] OTHER MALIGNANT NEOPLASM SKIN 2111 BENIGN 12-14-2013 [facility] NEOPLASM OF SURGERY STOMACH CENTER 19618 ABDOMINAL 12-14-2013 [facility] PAIN, EPIGASTRIC V1272 PERSONAL 11-09-2013 [facility] HISTORY OF COLONIC POLYPS 70003 UNSPECIFIED 10-30-2013 [facility] CEREBRAL [facility] ARTERY INC OCCLUSION W/INFARCT 4359 UNSPECIFIED 08-17-2013 [facility] TRANSIENT SERV CEREBRAL FOUNDATION ISCHEMIA 436 ACUTE BUT 08-17-2013 [facility] ILL-DEFINED SERV F[facility] CEREBROVASC ULAR DISEASE V1254 PERSONAL HX 08-17-2013 [facility] TIA & CI SERV W/O FOUNDATION RESIDUAL DEFICITS 2724 OTHER AND 08-16-2013 [facility] UNSPECIFIED [facility] HOS[facility] INC HYPERLIPIDE YING 4371 OTH 08-16-2013 [place] GENERALIZED MEDICAL ISCHEMIC IMAGING ASS CEREBROVASC ULAR DISEASE 89571 OTHER 08-16-2013 [facility] DISEASES OF AMBULANCE LUNG NOT SERV CERAMIC COATER MACHINE R ELSEWHERE CLASSIFIED 38669 MUSCLE 08-16-2013 [facility] WEAKNESS AMBULANCE (GENERALIZE SERV CERAMIC COATER MACHINE R D) 70701 OTHER 08-16-2013 [facility] RESPIRATORY AMBULANCE SERV C[place] [address] UNSPECIFIED 08-03-2013 [place] [address] CONJUNCTIVA 07-22-2013 FORT[facility] DAINA L HEMORRHAGE 72522 CEREBRAL 05-11-2013 [place] [facility] THROMBOSIS SERV WITH [facility] CEREBRAL INFARCTION 04934 OTHER 05-10-2013 [place] [facility] CONDITIONS SERV OF BRAIN [facility] 7949 NONSPECIFIC 05-10-2013 [place] [facility] ABNORM SERV RESULTS OTH [facility] SPEC FUNCT STUDY 2875 UNSPECIFIED 05-09-2013 [facility] THROMBOCYTO SERVICES PENIA 19591 OTHER 04-18-2013 A Santino SANTOS MD [facility] STATES 4659 ACUTE URIS 04-18-2013 A Santino CALERO [facility] UNSPECIFIED SITE 7881 DYSURIA 04-18-2013 A Santino BURRELL MD PSC 3480 CEREBRAL 02-07-2013 [place] CYSTS [facility] 99517 MEMORY LOSS 02-07-2013 [facility] INC 39103 OTHER 10-19-2012 DERMATOLOG[facility] SPECIFIED ERYTHEMATOU CONSULTANTS S CONDITION PSC OTHER 40876 INFLAMED 10-19-2012 DERMATOLOG[facility] SEBORRHEIC KERATOSIS CONSULTANTS [facility] 60051 PAIN IN 08-08-2012 [place] JOINT, MEM HOSP SHOULDER INC REGION 00129 OTHER 05-08-2012 [facility] THROMBOCYTO HEMATOLOGY PENIA ONCO 4293 CARDIOMEGAL 05-05-2012 [facility] MEDICAL IMAGING ASS 4660 ACUTE 05-03-2012 [facility] 4610 ACUTE 04-12-2012 A Santino BURRELL MAXILLARY [facility] SINUSITIS 496 CHRONIC 04-12-2012 TANESHA AIRWAY HILDA OBSTRUCTION NEC 7862 COUGH 04-12-2012 [facility] 92612 INFLUENZA 03-30-2012 A Santino VILLEGAS MD [facility] INFLUENZA A OTH MANIFEST 99984 WHEEZING 03-30-2012 A Santino BURRELL MD PSC 36304 SHORTNESS 03-26-2012 TANESHA OF BREATH HILDA 486 PNEUMONIA, 03-25-2012 KAV[facility] OWENS ORGANISM UNSPECIFIED 4871 INFLUENZA 03-25-2012 [place] WITH OTHER MEM HOSP RESPIRATORY INC MANIFESTATI ONS 61773 TACHYPNEA 03-25-2012 KAVYA OWENS 19443 SUDDEN 03-17-2012 [facility] VISUAL LOSS ISA 3698 UNQUALIFIED 03-17-2012 [facility] VISUAL [facility] LOSS, ONE INC EYE 3699 UNSPECIFIED 03-17-2012 TANESHA VISUAL HILDA LOSS 28748 NAUSEA 12-07-2011 [facility] 43903 ABDOMINAL 12-07-2011 [facility] PAIN, COMMUNITY UNSPECIFIED HOSPITA SITE 98924 ACUTE 12-02-2011 [facility] GASTRITIS NKLIN NANCY WITHOUT MENTION OF HEMORRHAGE 12437 OTHER SPEC 12-02-2011 [facility] GASTRITIS COMMUNITY WITHOUT HOSPITA MENTION HEMORRHAGE 7871 HEARTBURN 12-02-2011 [facility] NKLIN NANCY 10042 DYSPHAGIA 11-01-2011 [place] UNSPECIFIED [facility]ICAL IMAGING ASS 52499 DYSPHAGIA 11-01-2011 [facility] ORAL PHASE [facility] INC V711 OBSERVATION 11-01-2011 [facility] FOR [facility] SUSPECTED INC MALIGNANT NEOPLASM 5990 URINARY 07-29-2011 JOSELITO RACHID TRACT INFECTION SITE NOT SPECIFIED 7804 DIZZINESS 02-27-2011 MCANITRAMIE AND MICHELINE GIDDINESS 7840 HEADACHE 02-27-2011 [facility] 7919 OTHER 02-27-2011 VIOLET MARTINEZ NONSPECIFIC MICHELINE FINDING EXAMINATION OF URINE 66225 OBSTRUCTIVE 12-08-2010 JOSE L MAINOR SLEEP APNEA CONSULTING SRV 11675 OTHER 12-08-2010 JOSE L HAYWARD SPECIFIED CARDIAC CONSULTING DYSRHYTHMIA SRV S 73724 PRECORDIAL 12-08-2010 JOSE L HAYWARD PAIN CONSULTING SRV 7821 RASH AND 10-20-2010 [facility] OTHER CENTER OF NONSPECIFIC [place] SKIN ERUPTION V7612 OTHER 08-18-2010 [facility] SCREENING [facility] MAMMOGRAM INC 99496 UNSPECIFIED 08-16-2010 [facility] SITE OF EMERGENCY ANKLE SERVICES SPRAIN AND STRAIN 29623 SPRAIN AND 08-16-2010 [facility] STRAIN OF EMERGENCY UNSPECIFIED SERVICES SITE OF FOOT 9597 INJURY 08-16-2010 [place] OTHER&UNSPE MEDICAL CIFIED KNEE IMAGING ASS LEG ANKLE&FOOT E8889 UNSPECIFIED 08-16-2010 [facility] FALL [facility]ERGENCY SERVICES 64673 PAIN IN 07-30-2010 [place] JOINT MEDICAL PELVIC IMAGING ASS REGION AND THIGH 62552 OTHER 07-27-2010 MARY BURRELL, PAIN [facility] 7213 LUMBOSACRAL 07-27-2010 MARY BURRELL SPONDYLOSIS [facility] WITHOUT MYELOPATHY 7242 LUMBAGO 07-27-2010 MARY BURRELL M.[facility] E9479 UNSPEC 03-26-2010 [facility] RX/MEDICINA [place] [address] NUCLEAR 02-10-2010 [facility] SCLEROSIS 70325 OTHER 02-10-2010 [facility] VITREOUS OPACITIES 56901 UNSPECIFIED 01-28-2010 [facility] IRINA NANCY CONSTIPATIO N 4011 ESSENTIAL 11-01-2009 [facility] HYPERTENSIO [place] INC N, BENIGN 2720 PURE 08-26-2009 [facility] HYPERCHOLES [facility] 01603 ATROPHIC 08-26-2009 [facility] GASTRITIS [facility] WITHOUT HOSPITAL MENTION OF HEMORRHAGE 55357 OTHER 08-26-2009 [facility] SYMPTOMS [facility] INVOLVING HOSPITAL HEAD AND NECK 96091 OTH 08-22-2009 [place] NONSPECIFIC PHYSICIANS ABNORM CV GROUP SYSTEM FUNCTION STUDY 61513 CHEST PAIN 08-11-2009 [place] UNSPECIFIED PHYSICIANS GROUP 77447 CORONARY 08-07-2009 [facility] CORONARY ARTERY V7651 SPECIAL 07-18-2009 [facility] SCREENING ANESTHESIA FOR PSC MALIGNANT NEOPLASMS COLON 39300 SUPRAVENTRI 07-14-2009 [place] CULAR PHYSICIANS PREMATURE GROUP BEATS 47420 OTHER CHEST 07-14-2009 [place] PAIN PHYSICIANS GROUP V762 SCREENING 06-02-2009 PATHOLOGY & FOR CYTOLOGY MALIGNANT LAB NEOPLASM OF THE CERVIX 00693 UNSPECIFIED 05-20-2009 [place] ABNORMAL MEDICAL MAMMOGRAM IMAGING ASSOCIATES 72395 OTHER 05-20-2009 [place] [facility] ABNORMAL MEM HOSP FINDING INC RADIOLOGICA L EXAM BREAST 44991 UNSPECIFIED 04-17-2009 A Santino BURRELL VAGINITIS PSC AND VULVOVAGINI TIS 7906 OTHER 04-17-2009 A Santino BURRELL ABNORMAL [facility] BLOOD CHEMISTRY 7851 PALPITATION 04-14-2009 [place] S PHYSICIANS GROUP 2871 QUALITATIVE 02-06-2009 [facility] 1552 MALIGNANT 11-14-2008 [facility] NEOPLASM [facility] LIVER NOT HOSPITAL SPEC PRIMARY/SEC 57834 DENTAL 11-07-2008 GREGORY JUSTIN DMD EXTENDING PSC INTO DENTINE 42064 URINARY 06-18-2008 A Santino BURRELL FREQUENCY [facility] 74054 CLOSED 06-18-2008 [place] FRACTURE OF MEDICAL IMAGING UNSPECIFIED ASSOCIATES BONE OF FOOT 21806 CLOSED 06-06-2008 [place] FRACTURE OF GREGORIO NAVICULAR BONE OF FOOT E8490 PLACE OF 06-05-2008 [place] OCCURRENCE, MEDICAL HOME IMAGING ASSOCIATES E8809 ACCIDENTAL 06-05-2008 [place] FALL ON OR MEDICAL FROM OTHER IMAGING STAIRS OR ASSOCIATES STEPS 7964 OTHER 05-29-2008 [facility] ABNORMAL [facility] CLINICAL HOLDING FINDING V180 FAMILY 02-03-2008 [facility] HISTORY OF AMERIC DIABETES HOLDING MELLITUS 7019 UNSPECIFIED 01-30-2008 Fifi BURRELL MD PSC HYPERTROPHI C&ATROPHIC CONDITION SKIN 14165 UNSPECIFIED 01-25-2008 [facility] PROF SERV 7295 PAIN IN 12-05-2007 HERNANDEZ SOFT INDRA, TISSUES OF M.D.P.S.C. LIMB 1121 CANDIDIASIS 03-27-2007 Fifi BURRELL OF VULVA AND VAGINA Procedures Procedure DOS Code Location Performer Comment URINLS 62838 Fifi YEE, DIP 9 INDRA Calix STICK/TAB PSC LET REAGNT NON-AUTO MICRSCPY TRANSFERA 03428 [facility] SE 9 AMERIC AMERIC ASPARTATE HOLDING HOLDING AMINO AST SGOT COLLECTIO 43723 Fifi YEE, N VENOUS 9 INDRA Calix BLOOD PSC VENIPUNCT URE RADIOLOGI 54624 [place] Santino ALMENDAREZ 9 MEDICAL SARAN EXAMINATI IMAGING ON FOOT 2 ASSOCIATE VIEWS S LIPID 64195 [facility] PANEL 9 AMERIC AMERIC HOLDING HOLDING BLOOD 22619 [place] COUNT [address] [place] [address] AUTOMATED BLOOD 96967 [place] [facility] [address] [place] [address] W/MNL DIFRNTL WBC COUNT RADEX 10673 TALIA FREITAS, ANKLE 9 EMERGENCY TRINY S COMPLETE SERVICES MINIMUM 3 VIEWS ASSOCIATE S BLOOD 00982 [place] [facility] [address] [place] [address] AUTO&AUTO DIFRNTL WBC 25 54908 [facility] HYDROXY 9 AMERIC AMERIC INCLUDES HOLDING HOLDING FRACTIONS IF PERFORMED COLLECTIO 55780 [place] N VENOUS 9 [facility] VENIPUNCT URE BLOOD 93370 [place] COUNT [address] [place] [address] W/MNL DIFRNTL WBC COUNT BLOOD 30688 [place] COUNT [address] [place] [address] AUTOMATED COLLECTIO 07501 [place] N VENOUS 9 [facility] [place] [address] [facility] PHOSPHATA 9 AMERIC AMERIC [place] [address] [facility] GLUTAMYLT 9 AMERIC AMERIC RASE HOLDING HOLDING GAMMA TRANSFERA 54819 [facility] SE 9 AMERIC AMERIC ASPARTATE HOLDING HOLDING AMINO AST SGOT BASIC 03631 [facility] METABOLIC 9 AMERIC AMERIC PANEL HOLDING HOLDING CALCIUM TOTAL TRANSFERA 35965 [facility] SE 9 AMERIC AMERIC ALANINE HOLDING HOLDING AMINO ALT SGPT COLLECTIO 16784 [facility] N VENOUS 9 AMERIC AMERIC BLOOD HOLDING HOLDING VENIPUNCT URE BLOOD 55140 [place] COUNT 9 [facility] W/MNL DIFRNTL WBC COUNT COLLECTIO 86011 [place] N VENOUS 9 [facility] VENIPUNCT URE BLOOD 43245 [place] COUNT [address] [place] [address] AUTOMATED BLOOD 44671 [place] COUNT [address] [place] [address] AUTO&AUTO DIFRNTL WBC COLLECTIO 06329 [place] N VENOUS 9 [facility] VENIPUNCT URE BLOOD 59914 [place] COUNT 9 [facility] W/MNL DIFRNTL WBC COUNT COLLECTIO 77505 [place] N VENOUS 9 [facility] VENIPUNCT URE BLOOD 58302 [place] COUNT 9 [facility] AUTOMATED BLOOD 05548 [place] COUNT [address] [place] [address] AUTO&AUTO DIFRNTL WBC COLLECTIO 68291 [place] N VENOUS 9 [facility] VENIPUNCT URE Encounters Encounter Start End Date Code Location Performer Type Date HOSPITAL [address] [place] [address] [facility] [place] [id number] [facility] [place] [address] [facility] 7 7 [facility] 6 6 [facility] [place] [address] [facility] [place] - 6 6 [facility] - 6 6 [facility] [place] [address] [facility] [facility] 5 5 [facility] [place] 5 5 [facility] [place] [facility] 5 5 [facility] - 4 [facility] [place] [id number] 4 [facility] [place] [facility] 4 4 [facility] [place] [facility] 4 4 [facility] [place] [facility] 4 4 [facility] - 3 3 [facility] [place] [facility] 3 3 [facility] [place] [id number] 3 [facility] [place] [facility] 3 3 [facility] [place] - 3 3 [facility] [place] - 3 3 [facility] [place] [facility] 2 2 [facility] [place] [facility] 2 2 [facility] [place] [facility] 2 2 [facility] [place] [facility] 1 1 [facility] [place] [facility] 1 1 [facility] [place] - 1 1 [facility] [place] - 1 1 [facility] [place] [facility] 1 1 [facility] [place] - 1 1 [facility] [place] 1 1 [facility] [place] [facility] 1 1 [facility] [place] [facility] 1 1 [facility] [place] [facility] 1 1 [facility] [place] - 1 1 [facility] [place] - 0 0 [facility] [place] [facility] 0 0 [facility] [place] [facility] 0 0 [facility] [place] [facility] 0 0 [facility] [place] [facility] 0 0 [facility] [place] - 0 0 [facility] [place] - 0 0 [facility] [place] - 0 0 [facility] [place] [facility] [place] [facility] [place] [facility] [place] [facility] [place] [facility] 0 0 [facility] [place] [facility] [place] [facility] 0 0 [facility] [place] [facility] [place] [facility] 0 [facility] [place] [facility] 0 [facility] [place] [facility] [place] [facility] 0 [facility] [place] [facility] 0 0 [facility] [place] [facility] 0 [facility] [place] [facility] [place] [facility] [place] [facility] 0 [facility] [place] [facility] 0 [facility] [place] [facility] 0 0 [facility] [place] [facility] 0 [facility] [place] [facility] 0 0 [facility] [place] [facility] 0 [facility] [place] [facility] 0 [facility] [place] [facility] 0 0 [facility] [place] [facility] 0 [facility] [place] [facility] 0 [facility] [place] [facility] 0 0 [facility] [place] [facility] 9 [facility] [place] [facility] 9 9 [facility] [place] [facility] 9 9 [facility] [place] [facility] 9 9 [facility] [place] [facility] 9 9 [facility] [place] [facility] 9 9 [facility] [place] [facility] 9 9 [facility] [place] [facility] 9 9 [facility] [place] [facility] 9 9 [facility] [place] [facility] 9 9 [facility] [place] [facility] 9 [facility] [place] [facility] 9 9 [facility] [place] [facility] 9 9 [facility] [place] [facility] 9 9 [facility] [place] [facility] 9 9 [facility] [place] [facility] 9 9 [facility] [place] - 9 9 [facility] [place] [facility] 9 [facility] [place] [facility] 9 9 [facility] [place] [facility] 9 9 [facility] [place] [facility] 9 9 [facility] 9 [facility] 9 [facility] 9 9 [facility] 9 [facility] [place] - 9 9 [facility] T OFFICE 51089 FINESSE SHELTON 9 9 INDRA [facility] T VISIT PSC 25 MINUTES [facility] 9 [facility] T OFFICE 21240 [place] BERNARDO OUTPATIEN 9 9 GREGORIO PERKINS T [facility] 45 MINUT[facility] EMERGENCY 00352 [place] 9 9 [facility] LOW/MODER SEVERITY EMERGENCY 60823 TALIA FREITAS, 9 9 EMERGENCY [facility] T VISIT HIGH/URGE ASSOCIATE [facility] [place] - 9 9 [facility] 9 [facility] 9 9 [facility] T OFFICE 22541 [facility] 9 9 LIYA BURRELL T NGUYỄN AdamePPawanSPawanC 15 . [facility] [place] - 9 9 [facility] OFF[facility] 38070 [facility] 9 9 [facility] VISIT HEMATOLOG 25 Y ONCO [facility] [place] [facility] 9 9 [facility] [place] - 9 9 [facility] [place] - 9 9 [facility] [place] - 8 8 [facility] [place] [facility] 8 8 [facility] [place] 8 8 [facility] [place] [facility] 8 8 [facility] [place] - 8 8 [facility] [place] [facility] 8 8 [facility] [place] - 8 8 [facility] [place] - 8 8 [facility] [place] [facility] 8 8 [facility] [place] [facility] 8 8 [facility] [place] 8 8 [facility] [place] [facility] 8 8 [facility] [place] - 8 8 [facility] [place] - 8 8 [facility] [place] - 8 8 [facility]
--- OUTSIDE RECORDS SUMMARY | 2017-02-24 14:27 | External Medical Summary Rpt ---
Author Author KELY Leos, [employer] Address Unknown Phone Unavailable
--- OUTSIDE RECORDS SUMMARY | 2017-02-24 14:27 | External Medical Summary Rpt | CCD ---
Author Author , [employer] Organization [employer] Address Unknown Phone [email or web address] Immunization Name Date Rout CVX Reac Dose Comm Prov Is Faci e tion ent ider Refu lity Give sed n Infl 11-2 135 999 Hist D203 No D203 uenz 2-20 oric 45 45 a, 16 al High Info rmat Dose ion - Sour ce Unsp ecif ied PPV2 12-1 33 999 Hist H109 No H109 3 2-20 oric 05 al Info rmat ion - Sour ce Unsp ecif ied
--- OUTSIDE RECORDS SUMMARY | 2017-02-24 14:27 | External Medical Summary Rpt | CCD ---
Author Author , [employer] Organization [employer] Address Unknown Phone [email or web address] Immunization Name Date Rout CVX Reac Dose [...]
== END 2017-02-24 13:54 | disposition home or self-care (01) ==
LOC: UTC 12:46
PROVIDERS: Nurse Practitioner
DX: R19.7 Diarrhea, unspecified (principal); R30.9 Painful micturition, unspecified